=== PATIENT | male | born 1955 | race Caucasian/White ===

== ENCOUNTER 2016-11-23 14:44 | Outpatient (CLI) | payer OTHER | END 2016-11-23 14:45 | disposition EMS.NT | LOC: EMS 14:44 | PROVIDERS: ATTEND Surgery | DX: S61.402A Unspecified open wound of left hand, initial encounter (principal); S61.401A Unspecified open wound of right hand, initial encounter; V09.29XA Pedestrian injured in traffic accident involving other motor vehicles, initial encounter; Y93.01 Activity, walking, marching and hiking; Y92.414 Local residential or business street as the place of occurrence of the external cause ==

== ENCOUNTER 2016-11-23 15:07 | Emergency (ER) | payer OTHER ==
[2016-11-23] MEDS ORDERED: oxyCOD/ACETAMIN 5 MG/325 MG TABLET PO STA (15:32)
[2016-11-23] MEDS ORDERED: TETANUS/DIPHTHERIA/PERTUSSIS 0.5 ML SYRINGE IM ONE ×2 (15:32→15:36)
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
[2016-11-23] MEDS ORDERED: oxyCOD/ACETAMIN 5 MG/325 MG TABLET PO ONE (15:36)
[2016-11-23] MEDS ORDERED: LIDOCAINE JELLY 2% 5 ML TUBE TOP STA (16:27)
[2016-11-23] MEDS ORDERED: LIDOCAINE JELLY 2% 5 ML TUBE TOP ONE ×2 (16:30→16:35)
--- NOTE | 2016-11-23 16:58 | XRAY Preliminary Report ---
Exam: XR Foot 3 View LT IMPRESSION: No acute fracture or subluxation. [facility] SITE ID: [id number]
--- NOTE | 2016-11-23 17:01 | XRAY Report ---
EXAM: LEFT FOOT RADIOGRAPHY EXAM DATE: 11/23/2016 04:29 PM. CLINICAL HISTORY: Foot injury. Foot pain. COMPARISON: None. TECHNIQUE: 3 views. FINDINGS: Bones: Normal. No fractures or bone lesions. Joints: No subluxation or dislocation. Mild hallux valgus of first digit. Soft Tissues: Normal. No soft tissue swelling. IMPRESSION: No acute fracture or subluxation. [facility] Referring Provider Line: [phone] SITE ID: [id number]
[2016-11-23 17:59] VITALS: BP 175/93
== END 2016-11-23 18:13 | disposition home or self-care (01) ==
LOC: ED 15:07
DX: S30.810A Abrasion of lower back and pelvis, initial encounter (principal); S60.512A Abrasion of left hand, initial encounter; S60.511A Abrasion of right hand, initial encounter; S90.32XA Contusion of left foot, initial encounter; V09.00XA Pedestrian injured in nontraffic accident involving unspecified motor vehicles, initial encounter; Y93.01 Activity, walking, marching and hiking; Y92.488 Other paved roadways as the place of occurrence of the external cause; I10 Essential (primary) hypertension; E78.00 Pure hypercholesterolemia, unspecified
CPT/HCPCS: 73630; 90471; 90715; 99283; A9270; J3490

== ENCOUNTER 2017-04-10 11:28 | Outpatient (CLI) | payer OTHER | END 2017-04-10 11:29 | disposition home or self-care (01) | LOC: LAB 11:28 | PROVIDERS: ATTEND Family Medicine | DX: Z12.5 Encounter for screening for malignant neoplasm of prostate (principal) | CPT/HCPCS: 36415; 84153 ==

== ENCOUNTER 2018-01-30 23:35 | Outpatient (CLI) | payer OTHER | END 2018-01-30 23:36 | disposition critical access hospital (66) | LOC: EMS 23:35 | PROVIDERS: ATTEND Surgery | DX: R53.1 Weakness (principal) | CPT/HCPCS: A0425; A0429 ==

== ENCOUNTER 2018-01-30 23:40 | Emergency (ER) | payer OTHER ==
[2018-01-31] MEDS ORDERED: ALBUTEROL NEB 2.5 MG/3 ML INH STA (00:15)
[2018-01-31 00:30] LABS: BASOPHILS # (AUTO) 0.1 10^3/uL (0.0-0.1); BASOPHILS % (AUTO) 0.8 %; EOSINOPHILS # (AUTO) 0.1 10^3/uL (0.0-0.7); EOSINOPHILS % (AUTO) 0.5 %; LYMPHOCYTES % (AUTO) 18.5 %; MEAN CORPUSCULAR HEMOGLOBIN 31.5 pg (27.0-31.0); MEAN CORPUSCULAR HGB CONC 32.3 g/dL (32.0-36.0); MEAN CORPUSCULAR VOLUME 97.3 fL (80.0-94.0); MEAN PLATELET VOLUME 7.3 fL (7.4-11.4); MONOCYTES # (AUTO) 0.4 10^3/uL (0.0-1.0); MONOCYTES % (AUTO) 3.9 %; NEUTROPHILS # (AUTO) 8.3 10^3/uL (1.5-6.6); NEUTROPHILS % (AUTO) 76.3 %; PLT - PLATELET COUNT 360 10^3/uL (130-450); RED BLOOD COUNT 3.83 10^6/uL (4.70-6.10); RED CELL DISTRIBUTION WIDTH 14.6 % (12.0-15.0); WHITE BLOOD COUNT 10.8 x10^3/uL (4.8-10.8)
[2018-01-31 00:40] LABS: CALCIUM 8.8 mg/dL (8.5-10.3); CREATININE 1.4 mg/dL (0.6-1.2)
--- NOTE | 2018-01-31 01:21 | ED Physician Documentation ---
History of Present Illness - Stated complaint Stated Complaint: ETOH - Chief complaint Chief Complaint: General - History obtained from History obtained from: Patient, Family - History of Present Illness Timing: Today Pain level max: 0 Pain level now: 0 Improved by: nothing Worsened by: ambulation, even trying to stand - Additonal information Additional information: drinking alcohol tonight at, and after, a . he felt dizzy, unsteady gait , and bilateral lower extremity weakness Review of Systems Constitutional: reports: Reviewed and negative Eyes: reports: Reviewed and negative Cardiac: reports: Reviewed and negative Respiratory: reports: Reviewed and negative GI: reports: Reviewed and negative : reports: Reviewed and negative Skin: reports: Reviewed and negative Musculoskeletal: reports: Reviewed and negative Neurologic: reports: Generalized weakness. denies: Focal weakness, Numbness, Confused, Altered mental status, Headache PD PAST MEDICAL HISTORY - Past Medical History Cardiovascular: Hypertension, High cholesterol, Other Respiratory: Shortness of breath Endocrine/Autoimmune: None GI: None : None HEENT: None Psych: None Musculoskeletal: None Derm: Other - Past Surgical History Past Surgical History: Yes Cardiovascular: Other - Present Medications Home Medications: Ambulatory Orders Medication Instructions Recorded Confirmed Lisinopril 40 mg PO DAILY #30 tablet 11/23/16 Propranolol [Inderal] 10 mg PO BID 01/30/18 - Allergies Allergies/Adverse Reactions: Allergies Allergy/AdvReac Type Severity Reaction Status Date / Time No Known Drug Allergies Allergy Verified 01/30/18 23:50 - Social History Does the pt smoke?: Yes Smoking Status: Current every day smoker Does the pt drink ETOH?: No Does the pt have substance abuse?: No - Immunizations Immunizations are current?: No Immunizations: TDAP >10years/unknown PD ED PE NORMAL - Vitals Vital signs reviewed: Yes - General General: Alert and oriented X 3, No acute distress, Well developed/nourished - HEENT HEENT: PERRL, EOMI, Moist mucous membranes - Neck Neck: Supple, no meningeal sign, No bony TTP - Cardiac Cardiac: RRR, No murmur - Respiratory Respiratory: No respiratory distress, Clear bilaterally - Abdomen Abdomen: Normal bowel sounds, Soft, Non tender, Non distended - Derm Derm: Normal color, Warm and dry - Neuro Neuro: Alert and oriented X 3, speed runner 2-12 intact, No motor deficit, No sensory deficit, Normal speech PD ED PE EXPANDED - Extremities Extremities: Pedal edema bilateral Results - Vitals Vitals: Oxygen O2 Source Room air - Labs Labs: Laboratory Tests 01/31/18 01/31/18 00:25 00:25 WBC 10.8 RBC 3.83 L Hgb 12.0 L Hct 37.2 L MCV 97.3 H MCH 31.5 H MCHC 32.3 RDW 14.6 Plt Count 360 MPV 7.3 L Neut # (Auto) 8.3 H Lymph # (Auto) 2.0 [place] # (Auto) 0.4 Eos # (Auto) 0.1 Baso # (Auto) 0.1 Absolute Nucleated RBC 0.00 Nucleated RBC % 0.0 Sodium 133 L Potassium 3.3 L Chloride 96 L Carbon Dioxide 26 Anion Gap 11.0 BUN 15 Creatinine 1.4 H Estimated GFR (MDRD) 52 L Glucose 125 H Calcium 8.8 Ethyl Alcohol 243.8 PD MEDICAL DECISION MAKING - ED course Complexity details: reviewed results, re-evaluated patient, considered differential, d/w patient, d/w family ED course: was able to ambulate with minimal assistance late in ED stay, and he feels he is close enough to his baseline to be discharged home - Sepsis Event Vital Signs: Oxygen O2 Source Room air Departure - Departure Disposition: Home, Self Care Clinical Impression: Intoxication, Weakness Condition: Good Instructions: ED Alcohol Intoxication, ED Weakness [facility] Follow-Up: Nora Javed MD [Primary Care Provider] - Discharge Date/Time: 01/31/18 05:11
[2018-01-31] MEDS ORDERED: SODIUM CHLORIDE 0.9% 1,000 ML IV STA (01:23)
[2018-01-31 04:50] VITALS: BP 140/75
== END 2018-01-31 05:11 | disposition home or self-care (01) ==
LOC: EDUNIT# → ED 23:40
DX: F10.129 Alcohol abuse with intoxication, unspecified (principal); R53.1 Weakness; I10 Essential (primary) hypertension; F17.200 Nicotine dependence, unspecified, uncomplicated
CPT/HCPCS: 36415; 80048; 80320; 85025; 94640; 96360; 99283

== ENCOUNTER 2018-02-08 16:35 | Outpatient (CLI) | payer OTHER ==
--- NOTE | 2018-02-09 10:48 | MRI Report ---
Procedure Date: 02/08/2018 Accession Number: [id number] / [id number] Procedure: MRI - Lumbar Spine W/O CPT Code: FULL RESULT: EXAM: MRI LUMBAR SPINE WITHOUT CONTRAST EXAM DATE: 02/08/2018 04:44 PM. CLINICAL HISTORY: Leg weakness, bilateral, low back pain. COMPARISON: None. TECHNIQUE: Multiplanar, multisequence T1-weighted and fluid-sensitive sequences of the lumbar spine from T12 to S1 without contrast. Other: None. FINDINGS: Spinal Canal: The conus terminates at L1-L2. Tiny lipoma within the filum terminale at the posterior midline. Cauda equina otherwise unremarkable. Alignment: 5 mm anterior subluxation L4 on L5. Otherwise normal alignment. Bone Marrow: Lumbosacral transitional segment is referred to as L5. There are 4 non-rib bearing lumbar vertebral bodies. No gross fractures or bone lesions. No bone marrow replacement. Disk Levels/Facets: T12-L1: Minimal annular disk bulge. No stenosis. L1-L2: Small broad-based foraminal protrusions and mild facet arthropathy without significant stenosis. L2-L3: Broad-based left greater than right foraminal disk protrusions and mild degenerative facet arthropathy. Mild effacement of the thecal sac. Mild inferior foraminal narrowing without significant stenosis. L3-L4: Broad-based foraminal disk protrusions and mild degenerative facet arthropathy. Mild effacement of the thecal sac. Mild inferior foraminal narrowing without significant stenosis. L4-L5: Grade 1 degenerative spondylolisthesis. Severe left and moderate right facet arthropathy. Annular disk bulge. Mild left greater than right foraminal narrowing without significant stenosis. Mild effacement of the thecal sac. L5-S1: Small disk. No stenosis. Musculature: Normal. No edema or fatty atrophy. Other: The partially visualized retroperitoneum is unremarkable. IMPRESSION: 1. Lumbosacral transitional segment referred to as L5. 4 nonrib-bearing lumbar vertebral bodies. 2. Grade 1 L4-L5 degenerative spondylolisthesis. 3. Multilevel degenerative disk and facet arthropathy without a significant degree of canal or foraminal stenosis. Comment: The following findings are so common in adults without low back pain that while we report their presence, they must be interpreted with caution and in the context of the clinical situation. (Reference Juan Manuelk et al, Spine 2001) Prevalence of findings in patients without low back pain: Disk degeneration (any evidence): 92% Disk desiccation/T2 signal loss: 83% Disk height loss: 56% Disk bulge: 64% Disk protrusion: 32% Annular tear/high intensity zone: 38% [facility]
== END 2018-02-08 16:36 | disposition home or self-care (01) ==
LOC: DI 16:35
PROVIDERS: ATTEND Family Medicine
DX: M51.36 Other intervertebral disc degeneration, lumbar region (principal); M43.16 Spondylolisthesis, lumbar region; R29.898 Other symptoms and signs involving the musculoskeletal system
CPT/HCPCS: 72148

== ENCOUNTER 2019-06-26 21:19 | Outpatient (CLI) | payer MEDICARE | END 2019-06-26 21:20 | disposition critical access hospital (66) | LOC: EMS 21:19 | PROVIDERS: ATTEND Surgery | DX: R40.2411 Glasgow coma scale score 13-15, in the field [EMT or ambulance] (principal); R11.10 Vomiting, unspecified | CPT/HCPCS: A0425; A0429 ==

== ENCOUNTER 2019-06-26 21:25 | Emergency (ER) | payer MEDICAID, MEDICARE ==
--- NOTE | 2019-06-26 21:28 | ED Physician Documentation ---
PD HPI ALTERED MENTAL STATUS - Stated complaint Stated Complaint: ETOH - History obtained from History obtained from: EMS - History of Present Illness Timing - onset: Unknown Quality / character: Less responsive Contributing factors: Intoxicated Recently seen: Not recently seen - Additional information Additional information: patient BIBA for severe AMS; patient is unable to contribute to HPI/ROS due to severe AMS. Per medic report, patient was drinking alcohol with a friend earlier today. The friend went back to patient's house to check on him tonight and found patient on floor with several empty bottles of alcohol including bottle of vodka. Review of Systems Unable to obtain: Other (minimal responses to questions, thus cannot obtain reliable ROS) PD PAST MEDICAL HISTORY - Past Medical History Cardiovascular: Hypertension, High cholesterol, Other Respiratory: Shortness of breath Endocrine/Autoimmune: None GI: None : None HEENT: None Psych: None Musculoskeletal: None Derm: Other - Past Surgical History Past Surgical History: Yes General: Other Cardiovascular: Other - Present Medications Home Medications: Ambulatory Orders Medication Instructions Recorded Confirmed lisinopriL [Lisinopril] 40 mg PO DAILY #30 tablet 11/23/16 Propranolol [Inderal] 10 mg PO BID 01/30/18 - Allergies Allergies/Adverse Reactions: Allergies Allergy/AdvReac Type Severity Reaction Status Date / Time No Known Drug Allergies Allergy Verified 01/30/18 23:50 - Social History Does the pt smoke?: Yes Smoking Status: Current every day smoker Does the pt drink ETOH?: No Does the pt have substance abuse?: No - Immunizations Immunizations are current?: No Immunizations: TDAP >10years/unknown PD ED PE NORMAL - Vitals Vital signs reviewed: Yes - General General: Well developed/nourished - HEENT HEENT: Atraumatic, PERRL, EOMI, Other (dry mucous membranes) - Cardiac Cardiac: RRR, No murmur, No gallop, No rub - Respiratory Respiratory: No respiratory distress, Clear bilaterally - Abdomen Abdomen: Soft, Non distended - Derm Derm: Normal color, Warm and dry - Extremities Extremities: No edema - Neuro Eye Opening: Spontaneous Motor: Localizes to Pain Verbal: Confused GCS Score: 13 PD ED PE EXPANDED - General General: Other (obtunded. answers few questions (asked name, repeatedly, he eventually mumbles "[place]"; asked location, repeatedly, he eventually says "no" (to question of "do you know where you are right now?))) Results - Vitals Vitals: Oxygen O2 Source Room air - Labs Labs: Laboratory Tests 06/26/19 06/26/19 06/27/19 21:39 21:39 00:45 WBC 8.8 RBC 4.33 L Hgb 13.4 L Hct 44.4 MCV 102.5 H MCH 30.9 MCHC 30.2 L RDW 13.8 Plt Count 298 MPV 9.4 Neut # (Auto) 5.2 Lymph # (Auto) 2.9 [place] # (Auto) 0.5 Eos # (Auto) 0.1 Baso # (Auto) 0.1 Absolute Nucleated RBC 0.00 Nucleated RBC % 0.0 Sodium 135 Potassium 4.0 Chloride 98 L Carbon Dioxide 25 Anion Gap 12.0 BUN 15 Creatinine 1.1 Estimated GFR (MDRD) 68 L Glucose 104 H Calcium 8.8 Phosphorus 3.8 Magnesium 2.2 Total Bilirubin 0.3 AST 18 ALT 10 Alkaline Phosphatase 71 Troponin I High Sens 10.7 Total Protein 8.4 H Albumin 3.6 Globulin 4.8 H Albumin/Globulin Ratio 0.8 L Lipase 27 Urine Color Urine Clarity Urine pH Ur Specific [place] Urine Protein Urine Glucose (UA) Urine Ketones Urine Occult Blood Urine Nitrite Urine Bilirubin Urine Urobilinogen Ur Leukocyte Esterase Ur Microscopic Review Urine Culture Comments Urine Opiates Screen Ur Oxycodone Screen Urine Methadone Screen Ur Propoxyphene Screen Ur Barbiturates Screen Ur Tricyclics Screen Ur Phencyclidine Scrn Ur Amphetamine Screen U Methamphetamines Scrn U Benzodiazepines Scrn Urine Cocaine Screen U Cannabinoids Screen Ethyl Alcohol 308.5 06/27/19 00:55 WBC RBC Hgb Hct MCV MCH MCHC RDW Plt Count MPV Neut # (Auto) Lymph # (Auto) [place] # (Auto) Eos # (Auto) Baso # (Auto) Absolute Nucleated RBC Nucleated RBC % Sodium Potassium Chloride Carbon Dioxide Anion Gap BUN Creatinine Estimated GFR (MDRD) Glucose Calcium Phosphorus Magnesium Total Bilirubin AST ALT Alkaline Phosphatase Troponin I High Sens Total Protein Albumin Globulin Albumin/Globulin Ratio Lipase Urine Color YELLOW Urine Clarity CLEAR Urine pH 5.5 Ur Specific [place] <=1.005 Urine Protein NEGATIVE Urine Glucose (UA) NEGATIVE Urine Ketones NEGATIVE Urine Occult Blood TRACE-LYSE Urine Nitrite NEGATIVE Urine Bilirubin NEGATIVE Urine Urobilinogen 0.2 (NORMAL) Ur Leukocyte Esterase NEGATIVE Ur Microscopic Review NOT INDICATED Urine Culture Comments NOT INDICATED Urine Opiates Screen NEGATIVE Ur Oxycodone Screen NEGATIVE Urine Methadone Screen NEGATIVE Ur Propoxyphene Screen NEGATIVE Ur Barbiturates Screen NEGATIVE Ur Tricyclics Screen NEGATIVE Ur Phencyclidine Scrn NEGATIVE Ur Amphetamine Screen NEGATIVE U Methamphetamines Scrn NEGATIVE U Benzodiazepines Scrn NEGATIVE Urine Cocaine Screen NEGATIVE U Cannabinoids Screen NEGATIVE Ethyl Alcohol - Rads (name of study) CT head Radiology: Prelim report reviewed, See rad report CT neck Radiology: Prelim report reviewed, See rad report PD MEDICAL DECISION MAKING - ED course Complexity details: reviewed old records, reviewed results, re-evaluated patient, considered differential, d/w patient, d/w family ED course: during ED observation, patient became increasingly awake and alert and in NAD. he admits to drinking heavily (alcohol) and admits he drinks too much and need to cut down. I encouraged him to do so, but also emphasized the much greater importance of stopping alcohol intake entirely. Departure - Departure Disposition: 01 Home, Self Care Clinical Impression: Intoxication Condition: Good Instructions: ED Alcohol Intoxication, ED Alcohol Abuse Follow-Up: Nora Javed MD [Primary Care Provider] - Discharge Date/Time: 06/27/19 02:34
[2019-06-26 21:44] LABS: BASOPHILS # (AUTO) 0.1 10^3/uL (0.0-0.1); BASOPHILS % (AUTO) 0.7 %; EOSINOPHILS # (AUTO) 0.1 10^3/uL (0.0-0.7); EOSINOPHILS % (AUTO) 1.5 %; HGB - HEMOGLOBIN 13.4 g/dL (14.0-18.0); LYMPHOCYTES # (AUTO) 2.9 10^3/uL (1.5-3.5); LYMPHOCYTES % (AUTO) 32.4 %; MEAN CORPUSCULAR HEMOGLOBIN 30.9 pg (27.0-31.0); MEAN CORPUSCULAR HGB CONC 30.2 g/dL (32.0-36.0); MEAN CORPUSCULAR VOLUME 102.5 fL (80.0-94.0); MEAN PLATELET VOLUME 9.4 fL (7.4-11.4); MONOCYTES # (AUTO) 0.5 10^3/uL (0.0-1.0); MONOCYTES % (AUTO) 5.3 %; NEUTROPHILS # (AUTO) 5.2 10^3/uL (1.5-6.6); NEUTROPHILS % (AUTO) 59.5 %; PLT - PLATELET COUNT 298 10^3/uL (130-450); RED BLOOD COUNT 4.33 10^6/uL (4.70-6.10); RED CELL DISTRIBUTION WIDTH 13.8 % (12.0-15.0); WHITE BLOOD COUNT 8.8 x10^3/uL (4.8-10.8)
[2019-06-26] MEDS ORDERED: FOLIC ACID INJ 1 MG, THIAMINE INJ 100 MG, MAGNESIUM SULFATE 2 GM, MULTIVITAMIN 10 ML in... IV STA ×5 (21:46)
[2019-06-26 21:57] LABS: ALBUMIN 3.6 g/dL (3.2-5.5); ALBUMIN/GLOBULIN RATIO 0.8 (1.0-2.2); BILIRUBIN,TOTAL 0.3 mg/dL (0.2-1.0); CALCIUM 8.8 mg/dL (8.5-10.3); CREATININE 1.1 mg/dL (0.6-1.2); MAGNESIUM 2.2 mg/dL (1.7-2.8); PHOSPHORUS 3.8 mg/dL (2.5-4.6); TOTAL PROTEIN 8.4 g/dL (6.7-8.2)
[2019-06-26] MEDS ORDERED: THIAMINE 100 MG/1 ML 2 ML MDV ONE (21:57)
--- NOTE | 2019-06-26 22:34 | CT Report ---
Reason: AMS Procedure Date: 06/26/2019 Accession Number: [id number] / [id number] Procedure: CT - HEAD WO CPT Code: Final Report FULL RESULT: EXAM: CT HEAD EXAM DATE: 06/26/2019 10:26 PM. CLINICAL HISTORY: Altered mental status. Found down on floor. COMPARISON: None. TECHNIQUE: Multiaxial CT images were obtained from the foramen magnum to the vertex. Reformats: Sagittal and coronal. IV contrast: None. In accordance with CT protocol optimization, one or more of the following dose reduction techniques were utilized for this exam: automated exposure control, adjustment of mA and/or KV based on patient size, or use of iterative reconstructive technique. FINDINGS: Parenchyma: No intraparenchymal hemorrhage. No evidence of mass, midline shift, or CT findings of infarction. Quiros-white differentiation is distinct. There is mild chronic microvascular change in the deep white matter. Extraaxial Spaces: Normal for age. No subdural or epidural collections identified. Ventricles: Normal in size and position. Sinuses and Orbits: Imaged paranasal sinuses, orbits, and mastoids show no significant abnormality. Bones: No evidence of fracture or calvarial defect. Other: None. IMPRESSION: 1. No acute intracranial abnormality. 2. No skull fracture. 3. Mild chronic microvascular ischemic change. Otherwise unremarkable noncontrast CT brain. [facility]
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
--- NOTE | 2019-06-27 00:50 | XRAY Report ---
Reason: chest pain Procedure Date: 06/27/2019 Accession Number: [id number] / [id number] Procedure: XR - Chest 1 View X-Ray CPT Code: 18221 Final Report FULL RESULT: EXAM: CHEST RADIOGRAPHY EXAM DATE: 06/27/2019 12:39 AM. CLINICAL HISTORY: Chest pain. COMPARISON: XR CHEST PA AND LAT 09/09/2010 5:48 AM. TECHNIQUE: 1 view. FINDINGS: Lungs/Pleura: No alveolar consolidation or pleural effusion seen. No pneumothorax. Mediastinum: Within exam limitations, heart size is upper normal. Other: None. IMPRESSION: 1. Borderline heart size. No acute abnormality seen. [facility]
[2019-06-27 00:59] LABS: MUDS CUTOFF CONCENTRATIONS CUTOFF CONC BELOW:
[2019-06-27 01:07] LABS: BILIRUBIN,URINE NEGATIVE (NEGATIVE); GLUCOSE, URINE (UA) NEGATIVE (NEGATIVE); KETONES,URINE (UA) NEGATIVE (NEGATIVE); LEUKOCYTE ESTERASE, URINE NEGATIVE (NEGATIVE); NITRITE,URINE NEGATIVE (NEGATIVE); OCCULT BLOOD,URINE TRACE-LYSE (NEGATIVE); PH,URINE 5.5 PH (5.0-7.5); PROTEIN,URINE NEGATIVE (NEGATIVE); UROBILINOGEN,URINE 0.2 (NORMAL) E.U./dL (NORMAL)
[2019-06-27 01:08] LABS: CLARITY,URINE CLEAR (CLEAR)
[2019-06-27 01:15] LABS: AMPHETAMINE SCREEN,URINE NEGATIVE (NEGATIVE); BENZODIAZEPINES SCREEN, URINE NEGATIVE (NEGATIVE); COCAINE SCREEN URINE NEGATIVE (NEGATIVE); METHADONE SCREEN, URINE NEGATIVE (NEGATIVE); METHAMPHETAMINES SCREEN, URINE NEGATIVE (NEGATIVE); OPIATE SCREEN, URINE NEGATIVE (NEGATIVE); OXYCODONE SCREEN, URINE NEGATIVE (NEGATIVE); PROPOXYPHENE SCREEN, URINE NEGATIVE (NEGATIVE); TRICYCLIC ANTIDEPRESSANT,URINE NEGATIVE (NEGATIVE)
[2019-06-27 02:22] VITALS: BP 114/71
== END 2019-06-27 02:34 | disposition home or self-care (01) ==
LOC: EDUNIT# → ED 21:25
DX: F10.929 Alcohol use, unspecified with intoxication, unspecified (principal); R41.82 Altered mental status, unspecified; M47.812 Spondylosis without myelopathy or radiculopathy, cervical region; I10 Essential (primary) hypertension; F17.200 Nicotine dependence, unspecified, uncomplicated
CPT/HCPCS: 36415; 70450; 71045; 72125; 80053; 81003; 83690; 83735; 84100; 84484; 85025; 93005; 96365; 96366; 99281; 99284; J3411; 80306; 80320; 81001; 87086

== ENCOUNTER 2020-10-29 14:50 | Inpatient (IN) | payer MEDICARE ==
--- OUTSIDE RECORDS SUMMARY | 2020-10-29 15:31 | EXTERNAL MEDICAL SUMMARY RPT | Continuity of Care Document ---
:1955 Demographics Phone Unavailable Preferred Language Unknown Marital Status Unknown Presybeterian Affiliation Unknown Race Unknown Ethnic Group Unknown Author Organization [facility] Address [address] [phone] Phone Social History date description facility [id number]
--- NOTE | 2020-10-29 17:43 | XRAY Report ---
PROCEDURE: Ribs w/PA Chest LT INDICATIONS: fall with chest pain TECHNIQUE: 2 views of the left ribs were acquired, along with a single view chest. COMPARISON: Chest radiographs 06/27/2019 FINDINGS: Surgical changes and devices: None. Bones and chest wall: Multiple minimally displaced left lateral rib fractures are seen involving the 5th through 10th ribs, with mild displacement of the sixth rib fracture. No suspicious bony lesions. Overlying soft tissues appear unremarkable. Lungs and pleura: No pleural effusions or pneumothorax. Lungs appear clear. Mediastinum: Mediastinal contours appear normal. Heart size is normal. IMPRESSION: Multiple minimally to mildly displaced left lateral rib fractures involving the 5th through 10th ribs . No pneumothorax. Reviewed by: Preet Le MD on 10/29/2020 5:42 PM PDT Approved by: Preet Le MD on 10/29/2020 5:42 PM PDT Station ID: [id number]
[2020-10-29] MEDS ORDERED: HYDROmorphone 1 MG/ML CARPUJECT IVP STA (17:55)
[2020-10-29 17:56] LABS: BASOPHILS # (AUTO) 0.1 10^3/uL (0.0-0.1); BASOPHILS % (AUTO) 0.4 %; EOSINOPHILS % (AUTO) 0.3 %; HGB - HEMOGLOBIN 13.8 g/dL (14.0-18.0); LYMPHOCYTES # (AUTO) 1.5 10^3/uL (1.5-3.5); LYMPHOCYTES % (AUTO) 11.7 %; MEAN CORPUSCULAR HEMOGLOBIN 30.2 pg (27.0-31.0); MEAN CORPUSCULAR HGB CONC 30.7 g/dL (32.0-36.0); MEAN CORPUSCULAR VOLUME 98.5 fL (80.0-94.0); MEAN PLATELET VOLUME 9.3 fL (7.4-11.4); MONOCYTES # (AUTO) 0.9 10^3/uL (0.0-1.0); MONOCYTES % (AUTO) 6.6 %; NEUTROPHILS # (AUTO) 10.4 10^3/uL (1.5-6.6); NEUTROPHILS % (AUTO) 80.6 %; PLT - PLATELET COUNT 353 10^3/uL (130-450); RED BLOOD COUNT 4.57 10^6/uL (4.70-6.10); WHITE BLOOD COUNT 12.9 x10^3/uL (4.8-10.8)
[2020-10-29] MEDS ORDERED: IPRATROPIUM 0.2 MG/ML NEB INH STA (18:03)
[2020-10-29] MEDS ORDERED: ALBUTEROL NEB 2.5 MG/3 ML INH STA (18:03)
--- NOTE | 2020-10-29 18:06 | ED Physician Documentation ---
History of Present Illness - Stated complaint Stated Complaint: LT SIDE PX - Chief complaint Chief Complaint: Resp - Additonal information Additional information: 64-year-old male presents the emergency department for evaluation of shortness of air left-sided chest pain. He reports that 4 nights ago he was with his family around a campfire and he tripped falling onto his left side since then he has had increasing difficulty breathing and shortness of air. He does have a history of COPD but is not oxygen dependent. He believes he takes only albuterol as needed. On exam he appears labored sitting forward to breathe and mildly tachypneic with very poor air entry. However he is saturating about 93% on room air. Review of Systems Constitutional: denies: Fever, Chills Eyes: reports: Reviewed and negative Ears: reports: Reviewed and negative Nose: reports: Reviewed and negative Throat: reports: Reviewed and negative Cardiac: reports: Chest pain / pressure, Other (chest wall pain) Respiratory: denies: Dyspnea, Cough GI: denies: Abdominal Pain, Abdominal Swelling, Nausea, Vomiting : reports: Reviewed and negative Skin: denies: Rash, Lesions PD PAST MEDICAL HISTORY - Past Medical History Cardiovascular: Hypertension, High cholesterol, Other Respiratory: Shortness of breath Neuro: None Endocrine/Autoimmune: None GI: None : None HEENT: None Psych: None Musculoskeletal: None Derm: Other - Past Surgical History Past Surgical History: Yes General: Other Cardiovascular: Other - Present Medications Home Medications: Ambulatory Orders Medication Instructions Recorded Confirmed lisinopriL [Lisinopril] 40 mg PO DAILY #30 tablet 11/23/16 Propranolol [Inderal] 10 mg PO BID 01/30/18 - Allergies Allergies/Adverse Reactions: Allergies Allergy/AdvReac Type Severity Reaction Status Date / Time No Known Drug Allergies Allergy Verified 10/29/20 14:58 - Social History Does the pt smoke?: Yes Smoking Status: Current every day smoker Does the pt drink ETOH?: No Does the pt have substance abuse?: No - Immunizations Immunizations are current?: No Immunizations: TDAP >10years/unknown - POLST Patient has POLST: No PD ED PE EXPANDED - General General: Alert, In Pain - Cardiac Cardiac: Regular Rhythm, Radial strong equal, Pedal strong equal, Cap refill < 2 sec, Chest wall TTP (Significant left lateral chest wall tenderness without crepitus erythema or subcutaneous emphysema.) - Respiratory Respiratory: Labored, Other (Mild tachypnea. Very poor air entry in all lung mancini without wheeze or crackle.) - Abdomen Abdomen: Normal Bowel sounds. No: Tender to palpation - Derm Derm: Normal color, Warm and dry - Extremities Extremities: Normal. No: Deformity, Tenderness - Neuro Neuro: Alert and Oriented X 3, CNII-XII intact Results - Vitals Vitals: Vital Signs - 24 hr 10/29/20 10/29/20 10/29/20 14:58 17:41 18:17 Temperature 36.5 C 36.8 C Heart Rate 96 95 88 Respiratory 16 16 17 Rate Blood Pressure 180/100 H 154/88 H O2 Saturation 96 94 10/29/20 19:21 Temperature Heart Rate 89 Respiratory 18 Rate Blood Pressure 170/84 H O2 Saturation 100 Oxygen O2 Source Room air - Labs Labs: Laboratory Tests 10/29/20 10/29/20 17:50 17:50 WBC 12.9 H RBC 4.57 L Hgb 13.8 L Hct 45.0 MCV 98.5 H MCH 30.2 MCHC 30.7 L RDW 14.0 Plt Count 353 MPV 9.3 Neut # (Auto) 10.4 H Lymph # (Auto) 1.5 [place] # (Auto) 0.9 Eos # (Auto) 0.0 Baso # (Auto) 0.1 Absolute Nucleated RBC 0.00 Nucleated RBC % 0.0 Sodium 135 Potassium 4.6 Chloride 95 L Carbon Dioxide 28 Anion Gap 12.0 BUN 37 H Creatinine 1.3 H Estimated GFR (MDRD) 56 L Glucose 121 H Calcium 9.7 Total Bilirubin 0.8 AST 16 ALT 14 Alkaline Phosphatase 87 Total Protein 9.4 H Albumin 4.1 Globulin 5.3 H Albumin/Globulin Ratio 0.8 L Lipase 21 L - Rads (name of study) CXR Radiology: Final report received (Multiple minimally to mildly displaced left lateral rib fractures involving the fifth through the 10th ribs. No pneumothorax.) CT Chest wo Radiology: Final report received (Multiple left-sided rib fractures extending from the fourth to the 10th ribs including displaced lateral fifth and sixth with minimally displaced segmental fractures and seventh and eighth ribs. No pneumothorax.) PD MEDICAL DECISION MAKING - ED course Complexity details: reviewed results, re-evaluated patient, d/w patient, d/w content management consultant ED course: 64-year-old male who carries a history of COPD presents the emergency department for evaluation of shortness of air as well as left-sided rib pain after a fall Monday evening around a campfire. He did not strike his head or lose consciousness but has had a very tender chest since then in addition to that he has had progressive shortness of air. On presentation he was somewhat tachypneic and tripoding. He had very poor airflow though he was saturating 92% on room air. He was given albuterol and Atrovent nebulizers which markedly improved his airflow and his dyspnea. An initial x-ray suggested multiple left- sided rib fractures therefore we did proceed to do a CT of the chest without contrast. That also indicates multiple left-sided rib fractures. There is no pneumothorax. No findings of pneumonia. Screening labs do show a mild leukocytosis. Given this gentleman's age and the extensive amount of rib fractures Dr. Trevino was consulted for further evaluation and treatment. She agrees to admit him to the hospital under an observation status. Patient is awake well-appearing at this time and agrees with the plan of care. Departure - Departure Disposition: ED Place in Observation Clinical Impression: Multiple fractures of ribs Qualifiers: Encounter type: initial encounter Fracture type: closed Laterality: left Qualified Code(s): S22.42XA - Multiple fractures of ribs, left side, initial encounter for closed fracture
[2020-10-29 18:12] LABS: ALBUMIN 4.1 g/dL (3.2-5.5); ALBUMIN/GLOBULIN RATIO 0.8 (1.0-2.2); BILIRUBIN,TOTAL 0.8 mg/dL (0.2-1.0); CALCIUM 9.7 mg/dL (8.5-10.3); CREATININE 1.3 mg/dL (0.6-1.2); POTASSIUM 4.6 mmol/L (3.5-5.0); TOTAL PROTEIN 9.4 g/dL (6.7-8.2)
--- NOTE | 2020-10-29 18:40 | CT Report ---
PROCEDURE: CHEST WO INDICATIONS: multiple rib fx TECHNIQUE: Noncontrast 5 mm thick sections acquired from the pulmonary apices to the posterior costophrenic angl es. 7 mm thick coronal and sagittal MIP reformats were then acquired. For radiation dose reduction, the following was used: automated exposure control, adjustment of mA and/or kV according to patient size. COMPARISON: Left rib radiographs performed earlier the same day. FINDINGS: Image quality: Excellent. Lungs and pleura: No acute air space opacities. Mild atelectasis or scarring is seen at the lateral aspect of the left lung base and right middle lobe. No pleural effusions or pneumothorax. Central a nd peripheral airways are patent and normal in caliber. Mediastinum: Heart size is normal. No pericardial effusion. Mild aortic and coronary artery athero sclerotic calcifications are present. No mediastinal adenopathy by size criteria. Thoracic aorta and central pulmonary arteries are normal in size. Esophagus is normal in caliber. No hiatal hernia. Bones and chest wall: Multiple left-sided rib fractures are seen. There is a nondisplaced fracture a t the lateral left fourth rib. A fracture of the lateral left fifth rib is seen with medial displacem ent of the distal rib by 1 shaft width. There is a mildly displaced lateral sixth rib fracture with m edial displacement by less than 1 shaft width. Minimally displaced segmental fractures seen in the le ft seventh and 8 ribs with fractures posteriorly and laterally. Minimally displaced posterior ninth r ib fracture is seen. There is a minimally displaced lateral 10th rib fracture. No suspicious bony lesions. No vertebral body compression fractures. No axillary or supraclavicular adenopathy by size criteria. The thyroid is normal in size. Abdomen: Visualized upper abdominal solid organs and bowel loops appear normal in the absence of con trast. IMPRESSION: Multiple left-sided rib fractures as described above extending from the 4th to the 10th ribs, includi ng displaced lateral 5th and 6th rib fractures and minimally displaced segmental fractures in the 7th and 8th ribs. No pneumothorax. Reviewed by: Preet Le MD on 10/29/2020 6:39 PM PDT Approved by: Preet Le MD on 10/29/2020 6:39 PM PDT Station ID: [id number]
[2020-10-29] MEDS ORDERED: SODIUM CHLORIDE 0.9% 1,000 ML IV STA (19:08)
[2020-10-29 19:44] LABS: B. PARAPERTUSSIS- RESP PCR PAN NOT DETECTED; B. PERTUSSIS- RESP PCR PANEL NOT DETECTED; C. PNEUMONIAE- RESP PCR PANEL NOT DETECTED; CORONAVIRUS 229E-RESP PCR NOT DETECTED; CORONAVIRUS HKU1-RESP PCR NOT DETECTED; CORONAVIRUS NL63-RESP PCR NOT DETECTED; CORONAVIRUS OC43-RESP PCR NOT DETECTED; HUMAN METAPNEUMOVIRUS NOT DETECTED; INFLUENZA A- RESP PCR PANEL NOT DETECTED; INFLUENZA B - RESP PCR PANEL NOT DETECTED; M. PNEUMONIAE- RESP PCR PANEL NOT DETECTED; PARAINFLUENZA VIRUS 1 NOT DETECTED; PARAINFLUENZA VIRUS 2 NOT DETECTED; PARAINFLUENZA VIRUS 3 NOT DETECTED; PARAINFLUENZA VIRUS 4 NOT DETECTED; RHINOVIRUS/ENTEROVIRUS NOT DETECTED; RSV- RESP PCR PANEL NOT DETECTED; SARS-CoV-2 -RESP PCR PANEL NOT DETECTED
[2020-10-29] MEDS ORDERED: LORazepam 2 MG/ML VIAL IVP PRN (19:57)
--- OUTSIDE RECORDS SUMMARY | 2020-10-29 20:23 | EXTERNAL MEDICAL SUMMARY RPT | Continuity of Care Document ---
:1955 Demographics Phone Unavailable Preferred Language Unknown Marital Status Unknown Uatsdin Affiliation Unknown Race Unknown Ethnic Group Unknown Author Organization [place] Address [address] [id number] Phone Social History date description facility [id number]
[2020-10-29] MEDS: SODIUM CHLORIDE 0.9% 1,000 ML IV SCH (20:43)
[2020-10-29] MEDS: KETOROLAC 15 MG/ML VIAL IVP SCH (20:43)
[2020-10-29] MEDS: PROPRANOLOL 10 MG TABLET PO SCH (22:20)
[2020-10-29] MEDS: ACETAMINOPHEN 325 MG TABLET PO SCH (22:20)
[2020-10-30] MEDS: ACETAMINOPHEN 325 MG TABLET PO SCH ×6 (00:46→21:29)
[2020-10-30] MEDS: SODIUM CHLORIDE FLUSH 0.9% 10 ML SYRINGE IVP SCH ×3 (02:05→16:26)
[2020-10-30] MEDS: KETOROLAC 15 MG/ML VIAL IVP SCH ×4 (02:05→21:31)
[2020-10-30 05:50] LABS: BASOPHILS % (AUTO) 0.4 %; EOSINOPHILS # (AUTO) 0.1 10^3/uL (0.0-0.7); EOSINOPHILS % (AUTO) 1.7 %; HGB - HEMOGLOBIN 11.7 g/dL (14.0-18.0); LYMPHOCYTES # (AUTO) 1.8 10^3/uL (1.5-3.5); LYMPHOCYTES % (AUTO) 24.6 %; MEAN CORPUSCULAR HEMOGLOBIN 30.9 pg (27.0-31.0); MEAN CORPUSCULAR HGB CONC 30.8 g/dL (32.0-36.0); MEAN CORPUSCULAR VOLUME 100.3 fL (80.0-94.0); MEAN PLATELET VOLUME 9.7 fL (7.4-11.4); MONOCYTES # (AUTO) 0.7 10^3/uL (0.0-1.0); MONOCYTES % (AUTO) 9.4 %; NEUTROPHILS # (AUTO) 4.7 10^3/uL (1.5-6.6); NEUTROPHILS % (AUTO) 63.6 %; PLT - PLATELET COUNT 260 10^3/uL (130-450); RED BLOOD COUNT 3.79 10^6/uL (4.70-6.10); RED CELL DISTRIBUTION WIDTH 13.9 % (12.0-15.0); WHITE BLOOD COUNT 7.5 x10^3/uL (4.8-10.8)
[2020-10-30] MEDS: PANTOPRAZOLE 40 MG TABLET PO SCH (06:46)
[2020-10-30 07:04] LABS: ALBUMIN 3.4 g/dL (3.2-5.5); ALBUMIN/GLOBULIN RATIO 0.8 (1.0-2.2); BILIRUBIN,TOTAL 0.9 mg/dL (0.2-1.0); CALCIUM 8.8 mg/dL (8.5-10.3); CREATININE 1.3 mg/dL (0.6-1.2); MAGNESIUM 2.3 mg/dL (1.7-2.8); POTASSIUM 4.4 mmol/L (3.5-5.0); TOTAL PROTEIN 7.8 g/dL (6.7-8.2)
[2020-10-30] MEDS: lisinopriL 20 MG TABLET PO SCH (08:35)
[2020-10-30] MEDS: PROPRANOLOL 10 MG TABLET PO SCH ×2 (08:35→21:29)
[2020-10-30] MEDS: ENOXAPARIN 40 MG/0.4 ML SYRINGE SUBQ SCH (08:38)
[2020-10-30] MEDS ORDERED: SODIUM CHLORIDE 0.9% 500 ML IV ONE (09:26)
[2020-10-30] MEDS: SODIUM CHLORIDE 0.9% 1,000 ML IV SCH ×2 (09:43→23:07)
--- NOTE | 2020-10-30 11:36 | SURGERY HX AND PHYSICAL(T) ---
Surgical History & Physical - Chief Complaint/HPI Chief Complaint: Difficulty breathing and chest pain History of Present Illness: 64-year-old male presents the emergency department for evaluation of shortness of air left-sided chest pain. He reports that 4 nights ago he was with his family around a campfire and he tripped falling onto his left side since then he has had increasing difficulty breathing and shortness of air. He does have a history of COPD but is not oxygen dependent. He believes he takes only albuterol as needed. He had a CT scan in the emergency room that revealed at least 6 left-sided rib fractures with displacement of several. He was treated with albuterol and Atrovent which improved his respiratory status. He was admitted to the floor for observation and supportive care. This morning his white count is improved. He says that his pain is about the same as it was. He continues to appear uncomfortable and leans forward sleeping with his oxygen in place. - PMH/PSH/Social Hx Does the pt have a hx of MRSA?: No Neurological History: None Eyes, Ears, Nose, Throat: None Cardiovascular: Hypertension, High cholesterol, Other Respiratory: Shortness of breath Skin: Other Endocrine/Autoimmune: None Gastrointestinal: None Urinary: None Musculoskeletal: None Psychiatric: None General: Other Cardiothoracic: Other Smoking Status: Current every day smoker Does the pt drink ETOH?: No Frequency: Daily Does the pt have substance abuse?: No - Home Meds and Allergies Home Medications: Propranolol [Inderal] 10 mg PO BID 01/30/18 Allergies/Adverse Reactions: Allergies Allergy/AdvReac Type Severity Reaction Status Date / Time No Known Drug Allergies Allergy Verified 10/29/20 14:58 - Review of Systems Constitutional: Fatigue Respiratory: Shortness of breath, Cough, Other (Left chest pain) Gastrointestinal: No: Nausea, Vomiting - Vital Signs Heart Rate: 89 Blood Pressure: 170/84 Temperature: 36.4 C Respiratory Rate: 20 O2 Saturation: 96 Weight (kg): 92.5 kg Height: 1.78 m - Physical Exam General Appearance: positive: Mild distress, Lethargic Eyes Bilatera: positive: Normal inspection, No scleral icterus ENT: negative: Oral lesions Neck: positive: Nml inspection Respiratory: positive: Wheezes, Other (Exquisite tenderness to palpation of the left chest without crepitance.) Cardiovascular: positive: Regular rate & rhythm Peripheral Pulses: positive: 0 Abdomen: positive: Non-tender Skin: positive: Color nml Extremities: positive: Non-tender Neurologic/Psychiatric: positive: Oriented x3 - Patient Review Patient Review: Problems were reviewed with the patient during this visit. Medications were reviewed with the patient during this visit. Allergies were reviewed this patient during this visit. Pertinent Tests Reviewed: All pertitent test for this patient were reviewed. - Assessment & Plan Assessment and Plan: 64-year-old gentleman who fell 4 days ago and sustained multiple left-sided rib fractures. Now with COPD exacerbation and uncontrolled pain. 1. Pain control- narcotic sparing analgesia. 2. Consult hospitalist service regarding management of COPD 3. Repeat the chest x-ray in the a.m.
[2020-10-30] MEDS: HYDROmorphone 0.5 MG/0.5 ML SYRINGE IVP PRN ×2 (13:07→17:12)
[2020-10-30 13:19] LABS: MUDS CUTOFF CONCENTRATIONS CUTOFF CONC BELOW:
[2020-10-30 13:32] LABS: AMPHETAMINE SCREEN,URINE NEGATIVE (NEGATIVE); BARBITURATE SCREEN,UR NEGATIVE (NEGATIVE); BENZODIAZEPINES SCREEN, URINE NEGATIVE (NEGATIVE); COCAINE SCREEN URINE NEGATIVE (NEGATIVE); METHADONE SCREEN, URINE NEGATIVE (NEGATIVE); METHAMPHETAMINES SCREEN, URINE NEGATIVE (NEGATIVE); OPIATE SCREEN, URINE NEGATIVE (NEGATIVE); OXYCODONE SCREEN, URINE NEGATIVE (NEGATIVE); PROPOXYPHENE SCREEN, URINE NEGATIVE (NEGATIVE); THC CANNABINOID SCREEN, URINE NEGATIVE (NEGATIVE); TRICYCLIC ANTIDEPRESSANT,URINE NEGATIVE (NEGATIVE)
--- NOTE | 2020-10-30 15:10 | CONSULTATION NOTE ---
Referring Provider Name of Referring Provider:: felicia Chappell MD Consult Date: 10/30/20 Chief Complaint - Chief Complaint Chief Complaint: lethargy History of Present Illness - Admitted From Admitted From:: Home - History Obtained From Records Reviewed: [facility] History obtained from: Dr. Chappell, His sister Jami and patient Exam Limitations: cognitive deficits - History of Present Illness HPI Comment/Other: This is a very placid, pleasant 64-year-old white male who smoked up to 2 packs/day and is now down to half a pack per day that I am asked to see by Dr. Trevino for lethargy. 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 The hole slowed him down quite a bit and they think that he did not have enough blood and oxygen to his brain and that left him with cognitive deficits for the rest of his life. He is slow to think, slow to respond and s tarts getting agitated if you push him too hard. He is always drank too much. But he cut back for a few years when he went down to [place] to take care of his grandmother. Ever since he has been back on [facility], he went back to drinking. He lives in his sisters [address] [facility] [place]. If she had not given him that he would be homeless. She also subsidizing by giving him money every week to make sure he has enough money for groceries. On the weekends he likes to go to his friend's house. He was around a campfire last Monday (today is Monday) and he was intoxicated, tripped, fell. He was in quite a bit of pain when he came home. His sister goes by almost every day day to check on him. He did not share anything with her about pain or the fall. he began complaining of rib cage pain and he told her the story about falling so she brought him to the emergency room October 29. He has multiple left-sided rib fractures extending from the fourth to the 10th rib including a displaced lateral fifth and sixth rib and minimally displaced segmental fracture in the seventh and eighth rib. No pneumothorax. As such she has been admitted to general surgery as a trauma. General surgery saw him today and felt that he was excessively sleepy and slightly obtunded. With his history of COPD she is worried about hypercapnia and asked me to see him. She saw him this morning. I am seeing him a couple of hours later and he is upright in a chair, animatedly discussing a TV program with housekeeping. He is awake, alert. His sister tells me that he "sleeps very hard" and it is hard to get him awake and interactive in the morning. So she wonders if that is what general surgery saw. At this time he is at baseline other than the rib cage pain. He denies cough, chest congestion. Tells me that his pain is relatively well controlled with the medicines are giving him. He has no respiratory distress and denies wheezing, phlegm, leg edema. History - Past Medical History Cardiovascular: reports: Hypertension (Any compliant depending on the cost of meds. In the past has been on lisinopril, Norvasc, propranolol), High cholesterol, Other (PFO with repair as child) Respiratory: reports: COPD (Intermittently compliant depending on his access to medications, he has been on albuterol HFA, Combivent HFA in the past), Shortness of breath Neuro: reports: Other (life long cognitive deficit and developmental delay, leg weakness w neg MRI for stenosis) Endocrine/Autoimmune: reports: Other (Hidradenitis supra tip of axilla, groin, buttocks.) GI: reports: Other (umbilical hernia) : reports: Other (Pilonidal cyst removed in the ) HEENT: reports: None Psych: reports: None Musculoskeletal: reports: Other (plantar fasciitis, Left clavicle fracture 12 years old.) Derm: reports: Other MRSA Hx?: No Other Past Medical History: chronic alcohol abuse with beer, vodka and Kalpesh Ortiz. - Past Surgical History General: reports: Colonoscopy (08/19/14 and without abnormal findings), Other (umbilical/ventral hernia repair w Mesh 08/22/14) Cardiovascular: reports: Other - Family & Social History Family History Comment/Other: Father: age 56, drowned. Mother: COPD, age 72. 5 brothers: Hodgkin's disease, prostate cancer in 2 of them, the rest healthy. 2 sisters, one has HTN. No children Living arrangement: At home Living Situation: Alone Social History Notes: He lives in 1/5 wheel that his sister is given him. She also subsidized him financially. He is never been never had children. 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 Most recent job was at the [employer] here in [place]. He has smoked since being a teenager. Was up to 2 packs/day. Has recently cut back to half pack per day for the last year or so. Sister acknowledges his alcohol abuse but cannot quantify how much he drinks. He can either. She knows that it has to be beer because he cannot afford much more than that. He and she deny recreational substance abuse. - Substance History Abuse: Recurrent use of substance despite neg consequences: Alcohol Abuse Issues: Intoxication Tobacco Details: Cigarettes - POLST Patient has POLST: No POLST Status: Full Code (She is his power of silk printer and they have never discussed the CODE STATUS. As such by default he is a full code) Meds/Allgy - Home Medications Home Medications: Ambulatory Orders Medication Instructions Recorded Confirmed lisinopriL [Lisinopril] 40 mg PO DAILY #30 tablet 11/23/16 Propranolol [Inderal] 10 mg PO BID 01/30/18 - Allergies Allergies/Adverse Reactions: Allergies Allergy/AdvReac Type Severity Reaction Status Date / Time No Known Drug Allergies Allergy Verified 10/29/20 14:58 Review of Systems - Constitutional Constitutional: denies: Fatigue, Fever, Chills, Malaise, Weakness, Diaphoresis, Night sweats - Eyes Eyes: reports: Vision loss (with age). denies: Pain, Irritation, Amaurosis, Blurred vision - Ears, Nose & Throat Ears, Nose & Throat: reports: Hearing loss (with age), Nasal congestion (sometimes). denies: Ear pain, Tinnitus, Vertigo - Cardiovascular Cariovascular: reports: Decr. exercise tolerance (over the last 2-3 years). denies: Irregular heart rate, Palpitations, Chest pain, Edema, Syncope, Exertional dyspnea - Respiratory Respiratory: reports: Cough (daily for years, no change, not worse, not better), Sputum production (daily, clear, white to thick), Wheezing, SOB with exertion. denies: Snoring, Hemoptysis, Orthopnea, SOB at rest, Apnea - Gastrointestinal Gastrointestinal: denies: Abdominal pain, Abdominal distention, Constipation, Diarrhea, Change in bowel habits - Genitourinary Genitourinary: reports: Frequency, Urgency, Nocturia, Other (large prostate seen on chiroracter pelvic films 04/2017). denies: Dysuria, Hematuria, Flank pain, Urethral discharge - Musculoskeletal Musculoskeletal: reports: Back pain, Muscle aches, Stiffness, Joint pain - Integumentary Integumentary: reports: Rash - Neurological Neurological: reports: Memory problems, Pre-existing deficit. denies: General weakness, Focal weakness - Psychiatric Psychiatric: denies: Depression, Anxiety, Suicidal - Endocrine Endocrine: denies: Polyuria, Polydypsia - Hematologic/Lymphatic Hematologic/Lymphatic: reports: Anemia, Bruising. denies: Petechiae, Blood clots, Lymphadenopathy Exam - Vital Signs Reviewed Vital Signs: Yes Vital Signs: Vital Signs x48h Temp Pulse Pulse Resp BP BP Pulse Ox 10/30/20 13:11 36.6 C 68 20 136/68 H 93 10/30/20 11:39 36.4 C L 89 20 170/84 H 96 10/30/20 07:56 36.4 C L 88 20 163/84 H 96 10/30/20 07:30 100 - Physical Exam General Appearance: positive: No acute distress, Alert, Other (Deeply tanned, lean white male with a full head of hair and a full archuleta sitting upright in his chair in his room, wrapped in warm blankets, watching TV and just ate breakfast. Tells me that he is "okay" and "not too much pain") Eyes Bilateral: positive: PERRL, EOMI ENT: positive: No signs of dehydration, Other (Poor dentition) Neck: positive: No JVD, Lymphadenopathy (R) (shotty), Lymphadenopathy (L) (shotty). negative: Stiff neck Respiratory: positive: No respiratory distress, Wheezes (faint in lower mancini, overall diminished sounds), Other (chest wall hurts over left side>right side and hurts to take a really deep breath.). negative: Rales, Rhonchi Cardiovascular: positive: Regular rate & rhythm, No murmur. negative: JVD present, Gallop/S4 Peripheral Pulses: positive: 1+ Abdomen: positive: Non-tender, No organomegaly, Nml bowel sounds, No distention Skin: positive: Warm, Dry, Other (really tanned) Extremities: positive: Non-tender, Full ROM Neurologic/Psychiatric: positive: CN's nml (2-12), Motor nml, Disoriented to time Conclusion/Plan - Diagnosis Diagnosis: COPD. Without exacerbation. In spite of this patient smoking history, and intermittent use of bronchodilators, I think he is relatively stable considering the amount of rib fractures he has. I think that the sedation and slow response that the surgeon was seeing this morning was most likely due to just having woken up and drifting off to sleep in mid sentence. He did not get any opiates. I had ordered a blood gas but after I evaluated him I have canceled that blood gas. As for his history of high blood pressure, alcohol abuse, macrocytic anemia will follow through with appropriate medical management. Chronic kidney disease stage II. Appears to have acute worsening and has slid into acute kidney disease stage III - Plan Plan: Continue DuoNeb as needed. Add incentive spirometry. Already on lisinopril 40 mg a day for blood pressure and it is controlled Start thiamine and folate orally. No signs of alcohol withdrawal In view of his acute on chronic kidney disease, with limited use of Toradol. Avoid other nephrotoxic agents.Continue IV fluids at 75 cc an hour. - Lab Results Lab results reviewed: Yes Fish Bones: 10/30/20 05:16 10/30/20 06:45
--- NOTE | 2020-10-30 15:26 | XRAY Report ---
PROCEDURE: Chest 2 View X-Ray INDICATIONS: Multiple rib fractures TECHNIQUE: 2 view(s) of the chest. COMPARISON: Prior chest CT 10/29/2020 and also chest single view 06/27/2019. FINDINGS: Surgical changes and devices: None. Lungs and pleura: No pleural effusions or pneumothorax. Lungs are abnormal with hyperexpansion, and a mild interstitial prominence pattern likely reflecting prior smoking history.. Mediastinum: Mediastinal contours are normal. Heart size is normal. Bones and chest wall: No suspicious bony abnormalities. Soft tissues appear unremarkable. IMPRESSION: COPD, probable prior long-standing smoking history. No pneumonia or neoplasm found. Reviewed by: Reji Cadet MD on 10/30/2020 3:25 PM PDT Approved by: Reji Cadet MD on 10/30/2020 3:25 PM PDT Station ID: [id number]
[2020-10-30] MEDS: FOLIC ACID 1 MG TABLET PO SCH (16:26)
[2020-10-30] MEDS: THIAMINE 100 MG TABLET PO SCH (16:26)
--- NOTE | 2020-10-30 16:27 | PHARMACY PROGRESS NOTE ---
- Best Possible Medication History Admit Date and Time: 10/29/201956 Processed by: Pharmacy Medication History completed: Yes Patient Interview: Completed As the person ultimately responsible for medication therapy, providers are able to order a medication from an existing home medication list in [facility] via the "Reconcile Routine" prior to Confirmation of that medication by business support liaison. Such practice is discouraged except when the physician, in their clinical sonia gment, deems that a medical need exists for a medication without regard to previous use.
[2020-10-31] MEDS: KETOROLAC 15 MG/ML VIAL IVP SCH ×4 (01:17→20:09)
[2020-10-31] MEDS: ACETAMINOPHEN 325 MG TABLET PO SCH ×6 (01:17→21:19)
[2020-10-31] MEDS: SODIUM CHLORIDE FLUSH 0.9% 10 ML SYRINGE IVP SCH ×3 (01:18→05:56)
[2020-10-31] MEDS: HYDROmorphone 0.5 MG/0.5 ML SYRINGE IVP PRN ×4 (01:33→21:38)
[2020-10-31] MEDS: PANTOPRAZOLE 40 MG TABLET PO SCH (05:47)
[2020-10-31] MEDS: SODIUM CHLORIDE 0.9% 1,000 ML IV SCH ×2 (08:28→21:43)
[2020-10-31] MEDS: THIAMINE 100 MG TABLET PO SCH (09:25)
[2020-10-31] MEDS: FOLIC ACID 1 MG TABLET PO SCH (09:26)
[2020-10-31] MEDS: ENOXAPARIN 40 MG/0.4 ML SYRINGE SUBQ SCH (09:26)
[2020-10-31] MEDS: PROPRANOLOL 10 MG TABLET PO SCH ×2 (09:27→20:14)
[2020-10-31] MEDS: lisinopriL 20 MG TABLET PO SCH (09:27)
[2020-10-31] MEDS ORDERED: ALBUTEROL NEB 2.5 MG/3 ML INH PRN (12:58)
--- NOTE | 2020-10-31 13:08 | PROVIDER PROGRESS NOTE ---
Progress Note Subjective Hospital day #3 admitted for rib fractures and COPD exacerbation. Continues with pain with activity. No dyspnea. Tolerating diet. Objective Afebrile hemodynamically acceptable General Appearance: positive: No acute distress Eyes Bilateral: positive: Normal inspection ENT: positive: ENT inspection nml Neck: positive: Nml inspection Respiratory: positive: Chest non-tender, No respiratory distress, Breath sounds nml. negative: Wheezes, Rales, Rhonchi Cardiovascular: positive: Regular rate & rhythm Abdomen: positive: No distention, Other. negative: Guarding, Rebound Extremities: positive: Non-tender, Full ROM, Nml appearance Neurologic/Psychiatric: positive: Oriented x3, CN's nml (2-12) Impression CT scan chest October 29: 1. Multiple left-sided rib fractures as described above extending from the fourth to the 10th ribs including displaced lateral fifth and sixth rib fractures and minimally displaced segmental fractures in the seventh and eighth ribs. No pneumothorax. Impression/Plan (1) GI - bowel regimen. GI ppx. (2) SURGERY - no acute intervention at this time. (3) Renal/Lytes - continue IVF. Renal indices stable. Continue to trend. (4) Respiratory - O2 as necessary. Repeat chest x-ray. Appreciate hospitalist input. Continue IS. Ordered nebulizers. (5) Heme - Will continue with DVT ppx. H/H stable. (6) Cardiovascular - HD acceptable. (7) Neuro - Opiate sparring analgesia. Antispasmodics with Robaxin. Neuropathic agents. (8) PT OT
--- NOTE | 2020-10-31 13:30 | XRAY Report ---
PROCEDURE: Chest 1 View X-Ray INDICATIONS: cough, ngt TECHNIQUE: One view of the chest was acquired. COMPARISON: 10/30/2020; CT chest dated 10/30/2019 FINDINGS: Surgical changes and devices: None. Lungs and pleura: There is no pneumothorax. Left basilar patchy opacity. Linear densities at the left lung base are unchanged likely representing atelectasis/scarring. Mediastinum: Mediastinal contours appear normal. Heart size is normal. Bones and chest wall: Multiple left-sided rib fractures are again identified, not significantly jay ed in displacement. No new osseous abnormality. Degenerative changes of the spine. IMPRESSION: Subtle opacity at the left lung base may represent sequela of adjacent volume loss/atelectasis. Under lying infection not completely excluded. Multiple left-sided rib fractures again identified. No pneumothorax. Reviewed by: Karl Baum DO on 10/31/2020 12:29 PM JONAH Approved by: Karl Baum DO on 10/31/2020 12:29 PM JONAH Station ID: [id number]
[2020-10-31] MEDS: SODIUM CHLORIDE FLUSH 0.9% 10 ML SYRINGE IVP PRN (14:12)
--- NOTE | 2020-10-31 14:30 | PROVIDER PROGRESS NOTE ---
Subjective - Prog Note Date Prog Note Date: 10/31/20 Prog Note Time: 14:21 - Subjective Subjective: sitting up in chair. Comfortable. Pleuritic pain is controlled. Trying to do IS. 75-100% of food. Independent with going to BR and getting out of bed to chair. Current Medications - Current Medications Current Medications: Active Medications Acetaminophen (Acetaminophen 325 Mg Tablet) 650 mg PO Q4HR [facility] Last Admin: 10/31/20 14:10 Dose: 650 mg Documented by: Albuterol/Ipratropium (Ipratropium/Albuterol 3 Ml Neb) 3 ml INH Q4HR PRN PRN Reason: Wheezing Enoxaparin Sodium (Enoxaparin 40 Mg/0.4 Ml Syringe) 40 mg SUBQ DAILY [facility] Last Admin: 10/31/20 09:26 Dose: 40 mg Documented by: Folic Acid (Folic Acid 1 Mg Tablet) 1 mg PO DAILY [facility] Last Admin: 10/31/20 09:26 Dose: 1 mg Documented by: Hydromorphone HCl (Hydromorphone 0.5 Mg/0.5 Ml Syringe) 0.5 mg IVP Q2H PRN PRN Reason: PAIN Last Admin: 10/31/20 05:56 Dose: 0.5 mg Documented by: Sodium Chloride (Normal Saline 0.9%) 1,000 mls @ 75 mls/hr IV .[id number] [facility] Last Admin: 10/31/20 08:28 Dose: 75 mls/hr Documented by: Ketorolac Tromethamine (Ketorolac 15 Mg/Ml Vial) 15 mg IVP Q6H [facility] Stop: 11/03/20 19:59 Last Admin: 10/31/20 14:10 Dose: 15 mg Documented by: Lisinopril (Lisinopril 20 Mg Tablet) 40 mg PO DAILY [facility] Last Admin: 10/31/20 09:27 Dose: 40 mg Documented by: Lorazepam (Lorazepam 2 Mg/Ml Vial) 0.5 mg IVP Q1H PRN PRN Reason: Anxiety Pantoprazole Sodium (Pantoprazole 40 Mg Tablet) 40 mg PO QDAC [facility] Last Admin: 10/31/20 05:47 Dose: 40 mg Documented by: Propranolol HCl (Propranolol 10 Mg Tablet) 10 mg PO BID [facility] Last Admin: 10/31/20 09:27 Dose: 10 mg Documented by: Sodium Chloride (Sodium Chloride Flush 0.9% 10 Ml Syringe) 10 ml IVP 0100,090 0,1700 [facility] Last Admin: 10/31/20 05:56 Dose: 10 ml Documented by: Sodium Chloride (Sodium Chloride Flush 0.9% 10 Ml Syringe) 10 ml IVP PRN PRN PRN Reason: NEEDED PER PROVIDER ORDERS Last Admin: 10/31/20 14:12 Dose: 10 ml Documented by: Thiamine HCl (Thiamine 100 Mg Tablet) 100 mg PO DAILY [facility] Last Admin: 10/31/20 09:25 Dose: 100 mg Documented by: No Known Home Medications 10/30/20 Objective - Vital Signs/Intake & Output Reviewed Vital Signs: Yes Vital Signs: Vital Signs x48h Temp Pulse Pulse Resp BP Pulse Ox 10/31/20 12:05 94 10/31/20 12:00 37.3 C 78 18 119/69 88 L 10/31/20 09:20 75 116/71 10/31/20 08:02 36.7 C 84 22 99/54 L 95 Intake & Output: Intake & Output 10/28/20 10/29/20 10/30/20 10/31/20 23:59 23:59 23:59 23:59 Intake Total 1400 3325 1541.25 Output Total 300 250 Balance 1400 3025 1291.25 - Objective General Appearance: positive: Alert, Mild distress Eyes Bilateral: positive: PERRL ENT: positive: No signs of dehydration Neck: positive: No JVD. negative: Stiff neck Respiratory: positive: No respiratory distress, Rhonchi (clear with cough but it hurts left chest to cough), Other (left chest ribs can be felt to click as I feel his chest). negative: Wheezes, Rales Cardiovascular: positive: Regular rate & rhythm. negative: Gallop/S4, Friction rub Abdomen: positive: Non-tender, No organomegaly, Nml bowel sounds, No distention Skin: positive: Warm, Dry. negative: Diaphoresis, Pallor Extremities: positive: Full ROM, No pedal edema Neurologic/Psychiatric: positive: Oriented x3, CN's nml (2-12), Motor nml - Lab Results Fish Bones: 10/30/20 05:16 10/30/20 06:45 Assessment/Plan - Problem List (1) COPD without exacerbation Impression: Although he is an excessive smoker, he has not requested nicotine patch. Cough is controlled. Chest congestion is controlled. DuoNeb's as needed with the last time he used it on October 29. (2) Alcohol abuse Impression: Sister describes him as drinking beer, whiskey, vodka. No signs or physical exam findings of withdrawal. He is on a multivitamin per my request. Thiamine. Folate. Plan, no new orders (3) Chronic kidney disease (CKD), stage III (moderate) Impression: Baseline creatinine appears to be 0.9-1.0. During the stay he has been 1.3. His oral and IV intake is been adequate. He was given 3325 mils alone yesterday. So he is not dehydrated. No symptoms of obstruction with prostate. Plan: We will continue to monitor. Avoid nephrotoxic agents. Qualifiers: Chronic kidney disease stage 3 subtype: stage 3a (GFR 45-59) Qualified Code(s): N18.31 - Chronic kidney disease, stage 3a (4) Multiple fractures of ribs Impression: Admitted as a trauma patient with rib fractures. Being followed by general surgery. Qualifiers: Encounter type: subsequent encounter Fracture type: closed Laterality: left Qualified Code(s): S22.42XA - Multiple fractures of ribs, left side, initial encounter for closed fracture (5) Hypertension Impression: Blood pressure has not been a problem here for him. His home medication of Zestril has been resumed, as well as his Inderal. He did have one episode, ellie ier this morning, a blood pressure 99/54. Then he rebounded back to 119/69. We will continue to monitor and adjust medications as needed. Qualifiers: Hypertension type: essential hypertension Qualified Code(s): I10 - Essential (primary) hypertension
[2020-10-31] MEDS ORDERED: IPRATROPIUM 0.2 MG/ML NEB INH SCH (15:00)
[2020-11-01] MEDS: ACETAMINOPHEN 325 MG TABLET PO SCH ×6 (00:32→20:36)
[2020-11-01] MEDS: HYDROmorphone 0.5 MG/0.5 ML SYRINGE IVP PRN ×4 (00:34→21:55)
[2020-11-01] MEDS: IPRATROPIUM/ALBUTEROL 3 ML NEB INH PRN ×3 (01:25→11:46)
[2020-11-01] MEDS: SODIUM CHLORIDE FLUSH 0.9% 10 ML SYRINGE IVP SCH ×3 (02:33→15:55)
[2020-11-01] MEDS: KETOROLAC 15 MG/ML VIAL IVP SCH ×4 (02:56→20:36)
[2020-11-01 05:10] LABS: BASOPHILS # (AUTO) 0.1 10^3/uL (0.0-0.1); BASOPHILS % (AUTO) 0.5 %; EOSINOPHILS # (AUTO) 0.1 10^3/uL (0.0-0.7); EOSINOPHILS % (AUTO) 0.7 %; HCT - HEMATOCRIT 39.9 % (42.0-52.0); HGB - HEMOGLOBIN 11.7 g/dL (14.0-18.0); LYMPHOCYTES # (AUTO) 1.2 10^3/uL (1.5-3.5); LYMPHOCYTES % (AUTO) 6.4 %; MEAN CORPUSCULAR HEMOGLOBIN 30.2 pg (27.0-31.0); MEAN CORPUSCULAR HGB CONC 29.3 g/dL (32.0-36.0); MEAN CORPUSCULAR VOLUME 103.1 fL (80.0-94.0); MEAN PLATELET VOLUME 9.9 fL (7.4-11.4); MONOCYTES # (AUTO) 1.3 10^3/uL (0.0-1.0); MONOCYTES % (AUTO) 7.2 %; NEUTROPHILS # (AUTO) 15.3 10^3/uL (1.5-6.6); PLT - PLATELET COUNT 268 10^3/uL (130-450); RED BLOOD COUNT 3.87 10^6/uL (4.70-6.10); RED CELL DISTRIBUTION WIDTH 13.9 % (12.0-15.0); WHITE BLOOD COUNT 18.2 x10^3/uL (4.8-10.8)
[2020-11-01 05:22] LABS: ALBUMIN 2.7 g/dL (3.2-5.5); ALBUMIN/GLOBULIN RATIO 0.7 (1.0-2.2); ALKALINE PHOSPHATASE 66 IU/L (42-121); ALT ALANINE AMINOTRANSFERASE < 10 IU/L (10-60); AST ASPARTATE AMINOTRANSFERASE 10 IU/L (10-42); BILIRUBIN,TOTAL 0.4 mg/dL (0.2-1.0); BUN - BLOOD UREA NITROGEN 17 mg/dL (6-20); CALCIUM 8.5 mg/dL (8.5-10.3); CARBON DIOXIDE - CO2 27 mmol/L (21-32); CHLORIDE 106 mmol/L (101-111); CREATININE 0.9 mg/dL (0.6-1.2); GFR - MDRD 86 (>89); GLUCOSE 115 mg/dL (70-100); POTASSIUM 4.4 mmol/L (3.5-5.0); SODIUM 140 mmol/L (135-145); TOTAL PROTEIN 6.7 g/dL (6.7-8.2)
[2020-11-01] MEDS: PANTOPRAZOLE 40 MG TABLET PO SCH (06:37)
[2020-11-01] MEDS ORDERED: PIPERACILLIN/TAZOBACTAM 3.375 GM in SODIUM CHLORIDE 0.9% MINIBAG 100 ML IV ONE (08:00)
[2020-11-01] MEDS: lisinopriL 20 MG TABLET PO SCH (08:04)
[2020-11-01] MEDS: THIAMINE 100 MG TABLET PO SCH (08:05)
[2020-11-01] MEDS: FOLIC ACID 1 MG TABLET PO SCH (08:05)
[2020-11-01] MEDS: ENOXAPARIN 40 MG/0.4 ML SYRINGE SUBQ SCH (08:05)
[2020-11-01] MEDS: PROPRANOLOL 10 MG TABLET PO SCH ×2 (08:05→20:36)
[2020-11-01] MEDS: PIPERACILLIN/TAZOBACTAM 3.375 GM in SODIUM CHLORIDE 0.9% MINIBAG 100 ML IV SCH ×2 (11:29→20:36)
[2020-11-01] MEDS: SODIUM CHLORIDE 0.9% 1,000 ML IV SCH (11:29)
--- NOTE | 2020-11-01 11:59 | PROVIDER PROGRESS NOTE ---
Progress Note Subjective Between yesterday and today, getting a little bit sleepier. Even in spite of no opiates. He was on 1 L nasal cannula and is now needing 2 L nasal cannula for O2 sat of 75% starting at midnight last night. No fever. However tachycardic in the low 100s this morning. He feels like he needs to cough but he cannot bring it up because it hurts too much. Chest x-ray was done yesterday and he had a subtle new opacity at the left lung base and we started Zosyn for pneumonia yesterday. For semiliquid stools between yesterday and today. He continues to ambulate in the room. Respiratory therapy is doing Acapella, incentive spirometry, nebulizers. Eating 100% of his food. Medications: Dilaudid IV as needed pain, ketorolac as needed pain, Tylenol as needed, DuoNeb as needed, Lovenox 40 mg daily, folic acid 1 mg daily, thiamine 100 mg daily, Zestril 40 mg daily, Ativan 0.5 IV push every hour as needed, Protonix 40 p.o. daily, Zosyn started yesterday so today's day #2. Propranolol 10 twice daily. Objective: Vitals have not been recorded by RN since midnight. They were done he just has not had a chance to put them in the EMR. He is afebrile, normotensive, not in any respiratory distress with a rate of around 12. He is on 1-1/2 L nasal cannula to get an O2 sat of 9495%. The gentleman is sitting upright in his chair again. Alert, oriented to why he is here what is happened. Neck is supple. Lungs are developing rhonchi in the left midlung and left lower lobe. Occasional faint and scant wheeze. Bilaterally. Overall lungs are getting tighter and quieter with the wheezing new. I try and get him to cough but he says it hurts too much. But no dullness or egophony. No respiratory distress. PMI normally placed with a regular rate and rhythm Abdomen is soft, hypoactive bowel sounds, nontender. He had a bowel movement yesterday and today. Extremities have evidence of old venous stasis with splotchy hyperpigmentation of the distal and proximal tib-fib skin area. 1+ pitting edema around the ankles. BMP is normal this morning. CBC is with an elevated white cell count of 18.2 from 7.5 on October 30. Hemoglobin slightly lower at 11.7 from 13.8. Platelets 268. Assessment/plan 1. COPD with slight exacerbation today. We are the it security consultant service. General surgery is the admitting service for trauma. Plan: Add steroids, change nebulizers to every 6 hours fixed scheduled dose not as needed 2. Alcohol abuse. So far no symptoms of withdrawal. I have put him on thiamine and folate. 3. Chronic kidney disease stage III. Creatinine appears to improve substantially today. He has been 1.3 since admission and is now 0.9. Continue to push p.o. fluids, and he is on normal saline 75 cc an hour. 4. Multiple fractures of the left rib cage. Post trauma complication is now possibly pneumonia. Being followed by general surgery. 5. Hypertension. Controlled on home meds 6. Small left lower lung infiltrate on chest x-ray yesterday with slight increased oxygen need and today elevated white cell count. Suspect post trauma pneumonia. Zosyn day #2 today. We will continue to follow and monitor. 7. Diarrhea. This is after antibiotics were started. Stool submitted for C. difficile.
[2020-11-01] MEDS: IPRATROPIUM/ALBUTEROL 3 ML NEB INH SCH ×2 (15:33→21:13)
[2020-11-01] MEDS: SODIUM CHLORIDE FLUSH 0.9% 10 ML SYRINGE IVP PRN ×2 (20:37→21:55)
[2020-11-02] MEDS: SODIUM CHLORIDE 0.9% 1,000 ML IV SCH (01:03)
[2020-11-02] MEDS: ACETAMINOPHEN 325 MG TABLET PO SCH ×4 (01:05→13:17)
[2020-11-02] MEDS: KETOROLAC 15 MG/ML VIAL IVP SCH ×3 (01:56→13:17)
[2020-11-02] MEDS: PIPERACILLIN/TAZOBACTAM 3.375 GM in SODIUM CHLORIDE 0.9% MINIBAG 100 ML IV SCH ×2 (03:39→13:16)
[2020-11-02 05:28] LABS: BASOPHILS % (AUTO) 0.8 %; HCT - HEMATOCRIT 36.9 % (42.0-52.0); LYMPHOCYTES % (AUTO) 9.7 %; MEAN CORPUSCULAR HEMOGLOBIN 30.6 pg (27.0-31.0); MEAN CORPUSCULAR HGB CONC 29.8 g/dL (32.0-36.0); MEAN CORPUSCULAR VOLUME 102.8 fL (80.0-94.0); MEAN PLATELET VOLUME 10.1 fL (7.4-11.4); MONOCYTES % (AUTO) 8.1 %; PLT - PLATELET COUNT 238 10^3/uL (130-450); RED BLOOD COUNT 3.59 10^6/uL (4.70-6.10); RED CELL DISTRIBUTION WIDTH 13.8 % (12.0-15.0); WHITE BLOOD COUNT 12.6 x10^3/uL (4.8-10.8)
[2020-11-02 05:30] LABS: ABNORMAL LYMPHS % (MANUAL) 0 %
[2020-11-02 05:35] LABS: ALBUMIN 2.5 g/dL (3.2-5.5); ALBUMIN/GLOBULIN RATIO 0.6 (1.0-2.2); BILIRUBIN,TOTAL 0.4 mg/dL (0.2-1.0); CALCIUM 8.4 mg/dL (8.5-10.3); POTASSIUM 4.1 mmol/L (3.5-5.0); TOTAL PROTEIN 6.4 g/dL (6.7-8.2)
[2020-11-02 05:53] LABS: BAND NEUTROPHILS % (MANUAL) 4 %; DIFFERENTIAL COMMENT MANUAL DIFFERENTIAL; EOSINOPHILS # (MANUAL) 0.5 10^3/uL (0-0.7); LYMPHOCYTES # (MANUAL) 1.5 10^3/uL (1.5-3.5); LYMPHOCYTES % (MANUAL) 12 %; MONOCYTES # (MANUAL) 1.4 10^3/uL (0.0-1.0); NEUTROPHILS # (MANUAL) 9.2 10^3/uL (1.5-6.6); PLATELET ESTIMATE, MANUAL NORMAL (130-450,000) (NORMAL); PLATELET MORPHOLOGY NORMAL APPEARANCE (NORMAL); RBC MORPHOLOGY (MULTIPLE) NORMAL APPEARANCE (NORMAL); WBC MORPHOLOGY (MULTIPLE) NORMAL APPEARANCE (NORMAL)
[2020-11-02] MEDS: SODIUM CHLORIDE FLUSH 0.9% 10 ML SYRINGE IVP SCH ×2 (05:53→08:04)
[2020-11-02] MEDS: PANTOPRAZOLE 40 MG TABLET PO SCH (05:54)
[2020-11-02] MEDS: IPRATROPIUM/ALBUTEROL 3 ML NEB INH SCH ×2 (07:10→11:29)
--- NOTE | 2020-11-02 07:29 | PROVIDER PROGRESS NOTE ---
Progress Note Subjective Hospital day #4 admitted for rib fractures and COPD exacerbation. Continues with pain with activity. No dyspnea. Tolerating diet. Objective Afebrile hemodynamically acceptable General Appearance: positive: No acute distress Eyes Bilateral: positive: Normal inspection ENT: positive: ENT inspection nml Neck: positive: Nml inspection Respiratory: positive: Chest non-tender, No respiratory distress, Breath sounds nml. negative: Wheezes, Rales, Rhonchi Cardiovascular: positive: Regular rate & rhythm Abdomen: positive: No distention, Other. negative: Guarding, Rebound Extremities: positive: Non-tender, Full ROM, Nml appearance Neurologic/Psychiatric: positive: Oriented x3, CN's nml (2-12) Impression CT scan chest October 29: 1. Multiple left-sided rib fractures as described above extending from the fourth to the 10th ribs including displaced lateral fifth and sixth rib fractures and minimally displaced segmental fractures in the seventh and eighth ribs. No pneumothorax. Chest x-ray October 31, 2020 impression: 1. Septal opacity at the left lung base may represent sequelae of adjacent volume loss/atelectasis. Underlying infection not completely excluded. 2. Multiple left-sided rib fractures again identified. No pneumothorax. Impression/Plan (1) GI - bowel regimen. GI ppx. (2) SURGERY - no acute intervention at this time. (3) Renal/Lytes - continue IVF. Renal indices stable. Continue to trend. (4) Respiratory - O2 as necessary. Significant leukocytosis concerning for developing pneumonia. Will start empiric antibiotics. Appreciate hospitalist input. Continue IS. Continue nebulizers. (5) Heme - Will continue with DVT ppx. H/H stable. (6) Cardiovascular - HD acceptable. (7) Neuro - Opiate sparring analgesia. Antispasmodics with Robaxin. Neuropathic agents. (8) PT OT (9) INFECTIOUS DISEASE - Developing pneumonia likely secondary to atelectasis from recent chest wall trauma. Begin antibiotics.
[2020-11-02] MEDS: THIAMINE 100 MG TABLET PO SCH (08:04)
[2020-11-02] MEDS: lisinopriL 20 MG TABLET PO SCH (08:04)
[2020-11-02] MEDS: FOLIC ACID 1 MG TABLET PO SCH (08:04)
[2020-11-02] MEDS: PROPRANOLOL 10 MG TABLET PO SCH (08:04)
[2020-11-02] MEDS: ENOXAPARIN 40 MG/0.4 ML SYRINGE SUBQ SCH (08:04)
[2020-11-02] MEDS: HYDROmorphone 0.5 MG/0.5 ML SYRINGE IVP PRN (08:05)
--- NOTE | 2020-11-02 11:09 | PROVIDER PROGRESS NOTE ---
Subjective - Prog Note Date Prog Note Date: 11/02/20 Prog Note Time: 11:07 - Subjective Subjective: He sitting up in a chair. Nods off and falls asleep but easily wakes up when I walk into the room. Tells me that his pain is controlled as long as he can hold a pillow against his left rib cage with his left arm. If he holds it tight there, coughing is better. Coughing is very congested, bringing up quite a bit of phlegm. No hemoptysis. No fever spikes. He is back down to 1 L nasal cannula and is saturating at 100% with. His main complaint is the rib cage pain. He says that if he did not have that he does she feel pretty good. He is eating 100% of his food. Getting out of the bed and sitting in the chair. Current Medications - Current Medications Current Medications: Active Medications Acetaminophen (Acetaminophen 325 Mg Tablet) 650 mg PO Q4HR [facility] Last Admin: 11/02/20 08:03 Dose: 650 mg Documented by: Albuterol/Ipratropium (Ipratropium/Albuterol 3 Ml Neb) 3 ml INH RTQID [facility] Last Admin: 11/02/20 07:10 Dose: 3 ml Documented by: Enoxaparin Sodium (Enoxaparin 40 Mg/0.4 Ml Syringe) 40 mg SUBQ DAILY [facility] Last Admin: 11/02/20 08:04 Dose: 40 mg Documented by: Folic Acid (Folic Acid 1 Mg Tablet) 1 mg PO DAILY [facility] Last Admin: 11/02/20 08:04 Dose: 1 mg Documented by: Hydromorphone HCl (Hydromorphone 0.5 Mg/0.5 Ml Syringe) 0.5 mg IVP Q2H PRN PRN Reason: PAIN Last Admin: 11/02/20 08:05 Dose: 0.5 mg Documented by: Sodium Chloride (Normal Saline 0.9%) 1,000 mls @ 75 mls/hr IV .[id number] [facility] Last Admin: 11/02/20 01:03 Dose: 75 mls/hr Documented by: Piperacillin Sod/Tazobactam (Sod 3.375 gm/ Sodium Chloride) 100 mls @ 25 mls/hr IV Q8H [facility] Last Infusion: 11/02/20 08:05 Dose: Infused Documented by: Ketorolac Tromethamine (Ketorolac 15 Mg/Ml Vial) 15 mg IVP Q6H [facility] Stop: 11/03/20 19:59 Last Admin: 11/02/20 08:03 Dose: 15 mg Documented by: Lisinopril (Lisinopril 20 Mg Tablet) 40 mg PO DAILY [facility] Last Admin: 11/02/20 08:04 Dose: 40 mg Documented by: Lorazepam (Lorazepam 2 Mg/Ml Vial) 0.5 mg IVP Q1H PRN PRN Reason: Anxiety Pantoprazole Sodium (Pantoprazole 40 Mg Tablet) 40 mg PO QDAC [facility] Last Admin: 11/02/20 05:54 Dose: 40 mg Documented by: Pregabalin (Pregabalin 25 Mg Capsule) 75 mg PO BID [facility] Propranolol HCl (Propranolol 10 Mg Tablet) 10 mg PO BID [facility] Last Admin: 11/02/20 08:04 Dose: 10 mg Documented by: Sodium Chloride (Sodium Chloride Flush 0.9% 10 Ml Syringe) 10 ml IVP 0100,0900,1700 [facility] Last Admin: 11/02/20 08:04 Dose: Not Given Documented by: Sodium Chloride (Sodium Chloride Flush 0.9% 10 Ml Syringe) 10 ml IVP PRN PRN PRN Reason: NEEDED PER PROVIDER ORDERS Last Admin: 11/01/20 21:55 Dose: 10 ml Documented by: Thiamine HCl (Thiamine 100 Mg Tablet) 100 mg PO DAILY [facility] Last Admin: 11/02/20 08:04 Dose: 100 mg Documented by: No Known Home Medications 10/30/20 Objective - Vital Signs/Intake & Output Reviewed Vital Signs: Yes Vital Signs: Vital Signs x48h Temp Pulse Pulse Pulse Resp BP Pulse Ox 11/02/20 08:10 36.7 C 63 18 114/58 L 100 11/02/20 07:10 63 18 11/02/20 04:02 36.4 C L 78 20 116/81 H 96 Intake & Output: Intake & Output 10/30/20 10/31/20 11/01/20 11/02/20 23:59 23:59 23:59 23:59 Intake Total 3325 3075.00 2447.50 1200 Output Total 300 250 400 Balance 3025 2825.00 2047.50 1200 - Objective General Appearance: positive: Alert, Other (Sleepy tall white man sitting upright in a chair. No TV. Catnapping) Eyes Bilateral: positive: PERRL ENT: positive: No signs of dehydration Neck: positive: No JVD. negative: Stiff neck Respiratory: positive: No respiratory distress, Rhonchi (Bilateral and diffuse with left worse than right. Diminished breath sounds left base. No dullness or egophony. No increased respiratory effort, no use of accessory muscles) Cardiovascular: positive: Regular rate & rhythm. negative: Gallop/S4, Friction rub Abdomen: positive: Non-tender, No organomegaly, Nml bowel sounds, No distention Skin: positive: Warm, Dry Extremities: positive: Non-tender, Pedal edema (Right leg slightly worse than left leg. 1+ edema. Distal shins have evidence of old venous stasis with hyperpigmentation that splotchy over the skin. Skin is dry and cracked but no bruising, no redness.) Neurologic/Psychiatric: positive: Oriented x3, CN's nml (2-12), Motor nml - Lab Results Fish Bones: 11/02/20 04:59 11/02/20 04:59 Other Labs: Lab Results x24hrs 11/02/20 11/02/20 Range/Units 04:59 04:59 WBC 12.6 H (4.8-10.8) x10^3/uL RBC 3.59 L (4.70-6.10) 10^6/uL Hgb 11.0 L (14.0-18.0) g/dL Hct 36.9 L (42.0-52.0) % MCV 102.8 H (80.0-94.0) fL MCH 30.6 (27.0-31.0) pg MCHC 29.8 L (32.0-36.0) g/dL RDW 13.8 (12.0-15.0) % Plt Count 238 (130-450) 10^3/uL MPV 10.1 (7.4-11.4) fL Neut # (Auto) Not Reportable Lymph # (Auto) Not Reportable [place] # (Auto) Not Reportable Eos # (Auto) Not Reportable Baso # (Auto) Not Reportable Absolute Nucleated RBC Not Reportable Total Counted 100 Band Neuts % (Manual) 4 (0 - 10) % Abnorm Lymph % (Manual) 0 % Nucleated RBC % Not Reportable Neutrophils # (Manual) 9.2 H (1.5-6.6) 10^3/uL Lymphocytes # (Manual) 1.5 (1.5-3.5) 10^3/uL Monocytes # (Manual) 1.4 H (0.0-1.0) 10^3/uL Eosinophils # (Manual) 0.5 (0-0.7) 10^3/uL Basophils # (Manual) 0.0 (0-0.1) 10^3/uL Differential Comment MANUAL DIFFERENTIAL WBC Morphology NORMAL APPEARANCE (NORMAL) Platelet Estimate NORMAL (130-450,000) (NORMAL) Platelet Morphology NORMAL APPEARANCE (NORMAL) RBC Morph Micro Appear NORMAL APPEARANCE (NORMAL) Sodium 139 (135-145) mmol/L Potassium 4.1 (3.5-5.0) mmol/L Chloride 107 (101-111) mmol/L Carbon Dioxide 25 (21-32) mmol/L Anion Gap 7.0 (6-13) BUN 15 (6-20) mg/dL Creatinine 1.0 (0.6-1.2) mg/dL Estimated GFR (MDRD) 76 L (>89) Glucose 126 H (70-100) mg/dL Calcium 8.4 L (8.5-10.3) mg/dL Total Bilirubin 0.4 (0.2-1.0) mg/dL AST 11 (10-42) IU/L ALT 10 (10-60) IU/L Alkaline Phosphatase 90 (42-121) IU/L Total Protein 6.4 L (6.7-8.2) g/dL Albumin 2.5 L (3.2-5.5) g/dL Globulin 3.9 (2.1-4.2) g/dL Albumin/Globulin Ratio 0.6 L (1.0-2.2) ABX Reporting Has patient been on IV antibiotics over the past 48 hours?: Yes Assessment/Plan - Problem List (1) COPD with exacerbation Impression: When I was first consult, COPD stable and did not need much treatment. Yesterday he developed more wheezing, more cough. He out him on Zosyn for that. 2 days ago chest x-ray showed a developing left lower lobe infiltrate. With the addition of Zosyn, and continued DuoNeb he seems to be doing well today. I have not added steroids. If he does start to have excessive wheezing I will add t hose. Plan: Antibiotics for total of 7 days with today being day 2. If surgery sends him home, I would recommend duoneb, levaquin 750 qd. (2) Alcohol abuse Impression: Sister describes him as drinking beer, whiskey, vodka. No signs or physical exam findings of withdrawal. He is on a multivitamin per my request. Thiamine. Folate. Plan, no new orders (3) Acute on Chronic kidney disease (CKD), stage II (moderate) Impression: Baseline creatinine appears to be 0.9-1.0. During the stay he has been 1.3. His oral and IV intake is been adequate. His creatinine has come down to 0.9 to 1.0 here. Plan: We will continue to monitor. Avoid nephrotoxic agents. (4) Multiple fractures of ribs Impression: Admitted as a trauma patient with rib fractures. Being followed by general surgery. Qualifiers: Encounter type: subsequent encounter Fracture type: closed Laterality: left Qualified Code(s): S22.42XA - Multiple fractures of ribs, left side, initial encounter for closed fracture (5) Hypertension Impression: Blood pressure has not been a problem here for him. His home medication of Zestril has been resumed, as well as his Inderal. [id number] Qualifiers: Hypertension type: essential hypertension Qualified Code(s): I10 - Essential (primary) hypertension (5) Multiple fractures of ribs Qualifiers: Qualified Code(s): S22.42XA - Multiple fractures of ribs, left side, initial encounter for closed fracture (6) Hypertension Qualifiers: Qualified Code(s): I10 - Essential (primary) hypertension
--- NOTE | 2020-11-02 11:52 | Discharge Plan ---
Discharge Plan Problem Reviewed?: Yes Disposition: Home, Self Care Condition: Stable Prescriptions: Propranolol [Inderal] 10 mg PO BID #60 tablet Levofloxacin [Levaquin] 750 mg PO DAILY #10 tablet Pregabalin [Lyrica] 75 mg PO BID #60 tab Diet: Regular Activity Restrictions: 5 pound lifting limit Shower Restrictions: No Driving Restrictions: Yes (No driving) Assessment: Multiple rib fractures Pneumonia COPD exacerbation No Smoking: If you smoke, Please STOP! Call for help. Follow-up with: Marcella Chappell MD [Provider Admit Priv/Credential] -
--- NOTE | 2020-11-02 11:55 | DISCHARGE SUMMARY ---
"Discharge Summary Admit Date: 10/29/20 Discharge Date: 11/02/20 Discharging Provider: Misti Code Status: Attempt Resuscitation Condition at Discharge: Stable Discharge Disposition: 01 Home, Self Care - DIAGNOSES Admission Diagnoses: 1. Multiple rib fractures 2. Uncontrolled pain 3. COPD exacerbation Discharge Diagnoses with Status of Each Condition: 1. Multiple rib fractures-improving 2. Pain-control improved 3. COPD exacerbation-improving. Now with mild left pneumonia. - HPI History of Present Illness: 64-year-old male presents the emergency department for evaluation of shortness of air left-sided chest pain. He reports that 4 nights ago he was with his family around a campfire and he tripped falling onto his left side since then he has had increasing difficulty breathing and shortness of air. He does have a history of COPD but is not oxygen dependent. He believes he takes only albuterol as needed. He had a CT scan in the emergency room that revealed at least 6 left-sided rib fractures with displacement of several. He was treated with albuterol and Atrovent which improved his respiratory status. He was admitted to the floor for observation and supportive care. This morning his whi te count is improved. He says that his pain is about the same as it was. He continues to appear uncomfortable and leans forward sleeping with his oxygen in place. - CONSULTS | PROCEDURES Consultations: Hospitalist Procedures: None - HOSPITAL COURSE Hospital Course: Mr. Sosa was admitted to the MedSurg unit for pain control. Following hydration and pain medication, he improved significantly on the first hospital day. He seemed to be having some difficulty breathing with some wheezes and rales noted on examination. The hospitalist service was consulted for management of COPD. 2 days ago, he developed a mild leukocytosis and findings on the x-ray consistent with early left lung pneumonia or atelectasis. He was started on IV antibiotic therapy and has improved. Today he reports his pain is well controlled, he has no respiratory distress, and he is ready for discharge. He will be discharged to his home in the care of his sister. Discharge medications will include Lyrica 75 mg twice a day, Levaquin 750 mg daily, Tylenol, ibuprofen, and home medications.He will follow-up with me in my office in 2 weeks. - ALLERGIES Allergies/Adverse Reactions: Allergies Allergy/AdvReac Type Severity Reaction Status Date / Time No Known Drug Allergies Allergy Verified 10/29/20 14:58 - MEDICATIONS Home Medications: Ambulatory Orders Medication Instructions Recorded Confirmed Levofloxacin [Levaquin] 750 mg PO DAILY #10 tablet 11/02/20 Pregabalin [Lyrica] 75 mg PO BID #60 tab 11/02/20 Propranolol [Inderal] 10 mg PO BID #60 tablet 11/02/20 lisinopriL [Zestril] 40 mg PO DAILY tablet 11/02/20 - PHYSICAL EXAM AT DISCHARGE General Appearance: positive: No acute distress, Alert Eyes Bilateral: positive: Normal inspection, PERRL, EOMI ENT: positive: ENT inspection nml, Pharynx nml Neck: positive: No JVD Respiratory: positive: No respiratory distress, Rales (Left side at the base) Cardiovascular: positive: Regular rate & rhythm Peripheral Pulses: positive: 0 Abdomen: positive: Non-tender Skin: positive: Color nml Extremities: positive: Non-tender - LABS Result Diagrams: 11/02/20 04:59 11/02/20 04:59 - DIAGNOSTIC IMAGING Diagnostic Imaging Results: Final report reviewed Diagnostic Imaging Results Comments: Chest x-ray in October 31 shows a subtle opacity in the left lung consistent with ea rly pneumonia or atelectasis - QUALITY (Female Hip Fx Only) Was patient sent home on osteoporosis medication?: No - FOLLOW UP Follow Up: [address] Chappell - TIME SPENT Time Spent in Discharge (Minutes): 20"
[2020-11-02] MEDS ORDERED: PREGABALIN 25 MG CAPSULE PO SCH (12:00)
[2020-11-02 12:41] VITALS: BP 118/59
== END 2020-11-02 13:41 | disposition home or self-care (01) | DRG 183 ==
LOC: ED 14:50 → MS2 19:57 → OBSVTOIN 10-31 12:44
PROVIDERS: ADMIT Surgery; ATTEND Surgery
DX: S22.42XA Multiple fractures of ribs, left side, initial encounter for closed fracture (principal); J44.9 Chronic obstructive pulmonary disease, unspecified; J18.9 Pneumonia, unspecified organism; Y92.9 Unspecified place or not applicable; G89.11 Acute pain due to trauma; J44.1 Chronic obstructive pulmonary disease with (acute) exacerbation; I10 Essential (primary) hypertension; Z20.822 Contact with and (suspected) exposure to COVID-19; R53.83 Other fatigue; N17.9 Acute kidney failure, unspecified; W01.0XXA Fall on same level from slipping, tripping and stumbling without subsequent striking against object, initial encounter; N18.30 Chronic kidney disease, stage 3 unspecified; F17.210 Nicotine dependence, cigarettes, uncomplicated; F10.10 Alcohol abuse, uncomplicated; I12.9 Hypertensive chronic kidney disease with stage 1 through stage 4 chronic kidney disease, or unspecified chronic kidney disease; N18.31 Chronic kidney disease, stage 3a; R41.89 Other symptoms and signs involving cognitive functions and awareness; R19.7 Diarrhea, unspecified
CPT/HCPCS: 36415; 71045; 71046; 71101; 71250; 80053; 80306; 83690; 83735; 85025; 87493; 87631; 94640; 96372; 96374; 96375; 96376; 99284; 99285; A9270; G0378; J1170; J1650; 0202U; 82803

== ENCOUNTER 2020-11-06 16:05 | Emergency (ER) | payer MEDICAID, MEDICARE ==
--- OUTSIDE RECORDS SUMMARY | 2020-11-06 16:09 | EXTERNAL MEDICAL SUMMARY RPT | Continuity of Care Document ---
:1955 Demographics Phone Unavailable Preferred Language Unknown Marital Status Unknown Mormon Affiliation Unknown Race Unknown Ethnic Group Unknown Author Organization [facility] Address [address] [place] [address] Phone Care Team Providers Name Role Phone MD Unavailable Unavailable Results test status date ordered by attending specimen elver e platelet_count_estimat unknown [id number] unknown unknown unknown e urea_nitrogen_blood unknown [id number] unknown unknown unk nown Erythrocytes_volume_in unknown [id number] unknown unknown unknown _Blood_by_Automated_cou nt Erythrocyte_distributi unknown [id number] unknown unknown unknown on_width_Ratio_by_Autom ated_count MCV_Entitic_volume_by_ unknown [id number] unknown unknown unknown Automated_count MCH_Entitic_mass_by_Au unknown 15044088 unknown unknown unknown tomated_count Platelets_volume_in_Bl unknown 88943948 unknown unknown unknown ood_by_Automated_count Platelet_mean_volume_E unknown 20030186 unknown unknown unknown ntitic_volume_in_Blood_ by_Rees-Velasquez Hemoglobin_Mass_volume unknown 12719193 unknown unknown unknown _in_Blood leukocyte_count_blood unknown 83017332 unknown unknown u nknown erythrocyte_RBC_count unknown 10452009 unknown unknown u nknown Leukocytes_volume_in_B unknown 20020384 unknown unknown unknown lood_by_Automated_count Glomerular_Filtration_ unknown 85834308 unknown unknown unknown rate platelet_count unknown 96953960 unknown unknown unknown hemoglobin_blood unknown 14340915 unknown unknown unknow n hematocrit_blood unknown 26809269 unknown unknown unknow n potassium_blood unknown 27020549 unknown unknown unknown monocytes_absolute_man unknown 33640789 unknown unknown unknown ual lymphocytes_absolute_m unknown 03773169 unknown unknown unknown anual polymorphonuclear_neut unknown 29515028 unknown unknown unknown rophils_absolute_manual Glomerular_filtration_r unknown 43329158 unknown unknown unknown ate_1.73_sq_M.predicted _among_non-blacks_Volum e_Rate_Area_in_Serum_Pl asma_or_Blood_by_Creati nine-based_formula_MDRD _ Hematocrit_Volume_Frac unknown [id number] unknown unknown unknown tion_of_Blood_by_Automa ted_count bilirubin_serum_total unknown 49387609 unknown unknown u nknown alanine_aminotransfera unknown 35929803 unknown unknown unknown se_SGPT_serum carbon_dioxide_serum_t unknown 22718669 unknown unknown unknown otal aspartate_aminotransfe unknown 60209091 unknown unknown unknown rase_SGOT_serum protein_total_serum unknown 91267402 unknown unknown unk nown blood_glucose unknown 96593101 unknown unknown unknown potassium_blood unknown 49941527 unknown unknown unknown mean_corpuscular_volum unknown 46547261 unknown unknown unknown e_RBC platelet_count_estimat unknown 35021659 unknown unknown unknown e Urea_nitrogen_Mass_vol unknown 79517099 unknown unknown unknown ume_in_Serum_or_Plasma globulin_serum unknown 69474078 unknown unknown unknown alkaline_phosphatase_s unknown 33678519 unknown unknown unknown criselda Sodium_Moles_volume_in unknown 46426460 unknown unknown unknown _Serum_or_Plasma Protein_Mass_volume_in unknown 17600868 unknown unknown unknown _Serum_or_Plasma anion_gap_serum unknown 07014305 unknown unknown unknown mean_platelet_volume unknown 03369495 unknown unknown un known Glucose_Mass_volume_in unknown 30895413 unknown unknown unknown _Serum_or_Plasma Globulin_Mass_volume_i unknown 98027355 unknown unknown unknown n_Serum Creatinine_Mass_volume unknown 83936259 unknown unknown unknown _in_Serum_or_Plasma Chloride_Moles_volume_ unknown 31455598 unknown unknown unknown in_Serum_or_Plasma carbon_dioxide_serum_t unknown 80172728 unknown unknown unknown otal Calcium_Moles_volume_i unknown 36507529 unknown unknown unknown n_Serum_or_Plasma albumin_serum unknown 28674985 unknown unknown unknown Bilirubin.total_Mass_v unknown 23774083 unknown unknown unknown olume_in_Serum_or_Plasm a Aspartate_aminotransfe unknown 94082112 unknown unknown unknown rase_Enzymatic_activity _volume_in_Serum_or_Pla sma Anion_gap_4_in_Serum_o unknown 53418003 unknown unknown unknown r_Plasma creatinine_serum unknown 52514601 unknown unknown unknow n Alkaline_phosphatase_E unknown 51344594 unknown unknown unknown nzymatic_activity_volum e_in_Blood Albumin_Globulin_Mass_ unknown 09941879 unknown unknown unknown Ratio_in_Serum_or_Plasm a Albumin_Mass_volume_in unknown 14487626 unknown unknown unknown _Serum_or_Plasma Alanine_aminotransfera unknown 83273643 unknown unknown unknown se_Enzymatic_activity_v olume_in_Serum_or_Plasm a mean_corpuscular_hemog unknown 89506256 unknown unknown unknown lobin_concentration_rbc sodium_serum unknown 76682446 unknown unknown unknown albumin_globulin_ratio unknown 95941374 unknown unknown unknown _serum chloride_serum unknown 82271500 unknown unknown unknown calcium_serum unknown 61943597 unknown unknown unknown total_cells_counted_bl unknown 72062394 unknown unknown unknown ood mean_corpuscular_hemog unknown 33343848 unknown unknown unknown lobin_RBC red_blood_cell_distrib unknown 16686256 unknown unknown unknown ution_width T unknown 78268034 unknown unknown unknown T unknown 86365141 unknown unknown unknown T unknown 66731981 unknown unknown unknown TOTAL_CELLS_COUNTED unknown 29201750 unknown unknown unk nown T unknown 67163599 unknown unknown unknown T unknown 26639406 unknown unknown unknown T unknown 24328317 unknown unknown unknown T unknown 07468765 unknown unknown unknown PLATELET_ESTIMATE_MANU unknown 62082721 unknown unknown unknown AL T unknown 22429432 unknown unknown unknown T unknown 70465716 unknown unknown unknown NEUTROPHILS_MANUAL_ unknown 74918609 unknown unknown unk nown T unknown 06718914 unknown unknown unknown T unknown 64873744 unknown unknown unknown T unknown 61832544 unknown unknown unknown MONOCYTES_MANUAL_ unknown 34550521 unknown unknown unkno wn T unknown 38442690 unknown unknown unknown T unknown 04498622 unknown unknown unknown T unknown 48807289 unknown unknown unknown T unknown 41281111 unknown unknown unknown LYMPHOCYTES_MANUAL_ unknown 09871022 unknown unknown unk nown T unknown 89756644 unknown unknown unknown T unknown 18454603 unknown unknown unknown T unknown 40950301 unknown unknown unknown T unknown 49128146 unknown unknown unknown T unknown 14099740 unknown unknown unknown T unknown 46269127 unknown unknown unknown GFR_-_MDRD unknown 73051552 unknown unknown unknown T unknown 70500953 unknown unknown unknown T unknown 24013992 unknown unknown unknown T unknown 38172986 unknown unknown unknown T unknown 16962342 unknown unknown unknown T unknown 62229041 unknown unknown unknown T unknown 67294282 unknown unknown unknown BILIRUBIN_TOTAL unknown 45091524 unknown unknown unknown T unknown 01105053 unknown unknown unknown T unknown 44059877 unknown unknown unknown T unknown 26274266 unknown unknown unknown ALT_ALANINE_AMINOTRANS unknown 14397654 unknown unknown unknown FERASE ALKALINE_PHOSPHATASE unknown 08708001 unknown unknown un known T unknown 89542679 unknown unknown unknown T unknown 71452650 unknown unknown unknown ALBUMIN_GLOBULIN_RATIO unknown 30290634 unknown unknown unknown urea_nitrogen_blood unknown 41737549 unknown unknown unk nown Erythrocytes_volume_in unknown 34976158 unknown unknown unknown _Blood_by_Automated_cou nt Erythrocyte_distributi unknown 77186147 unknown unknown unknown on_width_Ratio_by_Autom ated_count MCV_Entitic_volume_by_ unknown 76680531 unknown unknown unknown Automated_count MCH_Entitic_mass_by_Au unknown 03557403 unknown unknown unknown tomated_count Platelets_volume_in_Bl unknown 10493660 unknown unknown unknown ood_by_Automated_count Platelet_mean_volume_E unknown 45255523 unknown unknown unknown ntitic_volume_in_Blood_ by_Rees-Velasquez neutrophil_count_blood unknown 89669255 unknown unknown unknown monocyte_count_blood unknown 31986324 unknown unknown un known lymphocyte_count_blood unknown 97473307 unknown unknown unknown Hemoglobin_Mass_volume unknown 30859559 unknown unknown unknown _in_Blood eosinophil_count_blood unknown 62200637 unknown unknown unknown Basophils_volume_in_Bl unknown 35708389 unknown unknown unknown ood_by_Manual_count leukocyte_count_blood unknown 82511027 unknown unknown u nknown erythrocyte_RBC_count unknown 75364028 unknown unknown u nknown Leukocytes_volume_in_B unknown 75889079 unknown unknown unknown lood_by_Automated_count Glomerular_Filtration_ unknown 35560516 unknown unknown unknown rate platelet_count unknown 26392580 unknown unknown unknown hemoglobin_blood unknown 51416419 unknown unknown unknow n hematocrit_blood unknown 35422792 unknown unknown unknow n potassium_blood unknown 29263410 unknown unknown unknown Glomerular_filtration_r unknown 36842435 unknown unknown unknown ate_1.73_sq_M.predicted _among_non-blacks_Volum e_Rate_Area_in_Serum_Pl asma_or_Blood_by_Creati nine-based_formula_MDRD _ Hematocrit_Volume_Frac unknown 94990624 unknown unknown unknown tion_of_Blood_by_Automa ted_count bilirubin_serum_total unknown 02023354 unknown unknown u nknown alanine_aminotransfera unknown 77773838 unknown unknown unknown se_SGPT_serum carbon_dioxide_serum_t unknown 13396635 unknown unknown unknown otal aspartate_aminotransfe unknown 84290741 unknown unknown unknown rase_SGOT_serum protein_total_serum unknown 49282587 unknown unknown unk nown blood_glucose unknown 19792111 unknown unknown unknown potassium_blood unknown 16203832 unknown unknown unknown magnesium_serum unknown 14325810 unknown unknown unknown mean_corpuscular_volum unknown 33222524 unknown unknown unknown e_RBC Urea_nitrogen_Mass_vol unknown 84865963 unknown unknown unknown ume_in_Serum_or_Plasma globulin_serum unknown 91652302 unknown unknown unknown alkaline_phosphatase_s unknown 56966327 unknown unknown unknown criselda Sodium_Moles_volume_in unknown 79295340 unknown unknown unknown _Serum_or_Plasma Protein_Mass_volume_in unknown 22600053 unknown unknown unknown _Serum_or_Plasma eosinophil_count_blood unknown 08424032 unknown unknown unknown anion_gap_serum unknown 42868425 unknown unknown unknown mean_platelet_volume unknown 69205134 unknown unknown un known Magnesium_Moles_volume unknown 82032547 unknown unknown unknown _in_Serum_or_Plasma basophil_count_blood unknown 64144338 unknown unknown un known monocyte_count_blood unknown 84745733 unknown unknown un known lymphocyte_count_blood unknown 78095904 unknown unknown unknown neutrophil_count_blood unknown 69592905 unknown unknown unknown Glucose_Mass_volume_in unknown 00140715 unknown unknown unknown _Serum_or_Plasma Globulin_Mass_volume_i unknown 84373386 unknown unknown unknown n_Serum Creatinine_Mass_volume unknown 87334924 unknown unknown unknown _in_Serum_or_Plasma Chloride_Moles_volume_ unknown 42963279 unknown unknown unknown in_Serum_or_Plasma carbon_dioxide_serum_t unknown 28686293 unknown unknown unknown otal Calcium_Moles_volume_i unknown 62831052 unknown unknown unknown n_Serum_or_Plasma albumin_serum unknown 35125783 unknown unknown unknown Bilirubin.total_Mass_v unknown 19966656 unknown unknown unknown olume_in_Serum_or_Plasm a Aspartate_aminotransfe unknown 28590188 unknown unknown unknown rase_Enzymatic_activity _volume_in_Serum_or_Pla sma Anion_gap_4_in_Serum_o unknown 82601912 unknown unknown unknown r_Plasma creatinine_serum unknown 45826007 unknown unknown unknow n Alkaline_phosphatase_E unknown 06701043 unknown unknown unknown nzymatic_activity_volum e_in_Blood Albumin_Globulin_Mass_ unknown 30820250 unknown unknown unknown Ratio_in_Serum_or_Plasm a Albumin_Mass_volume_in unknown 81475065 unknown unknown unknown _Serum_or_Plasma Alanine_aminotransfera unknown 34860636 unknown unknown unknown se_Enzymatic_activity_v olume_in_Serum_or_Plasm a mean_corpuscular_hemog unknown 45126609 unknown unknown unknown lobin_concentration_rbc sodium_serum unknown 37127140 unknown unknown unknown albumin_globulin_ratio unknown 72937684 unknown unknown unknown _serum chloride_serum unknown 35853724 unknown unknown unknown calcium_serum unknown 93066634 unknown unknown unknown mean_corpuscular_hemog unknown 14466670 unknown unknown unknown lobin_RBC red_blood_cell_distrib unknown 52805802 unknown unknown unknown ution_width T unknown 97166332 unknown unknown unknown T unknown 81955650 unknown unknown unknown T unknown 42246598 unknown unknown unknown T unknown 07337448 unknown unknown unknown T unknown 83665370 unknown unknown unknown T unknown 28364006 unknown unknown unknown NEUTROPHILS_AUTO_ unknown 93525580 unknown unknown unkno wn T unknown 61138563 unknown unknown unknown T unknown 90225462 unknown unknown unknown T unknown 58339162 unknown unknown unknown MONOCYTES_AUTO_ unknown 54140312 unknown unknown unknown T unknown 85754096 unknown unknown unknown T unknown 24362746 unknown unknown unknown T unknown 88448021 unknown unknown unknown T unknown 67990914 unknown unknown unknown T unknown 29776465 unknown unknown unknown LYMPHOCYTES_AUTO_ unknown 00153575 unknown unknown unkno wn T unknown 60101643 unknown unknown unknown T unknown 70030237 unknown unknown unknown T unknown 06978019 unknown unknown unknown T unknown 11183804 unknown unknown unknown T unknown 05689346 unknown unknown unknown T unknown 50095758 unknown unknown unknown T unknown 03432874 unknown unknown unknown GFR_-_MDRD unknown 98017714 unknown unknown unknown T unknown 31804605 unknown unknown unknown EOSINOPHILS_AUTO_ unknown 10953258 unknown unknown unkno wn T unknown 60919483 unknown unknown unknown T unknown 01537017 unknown unknown unknown T unknown 76028161 unknown unknown unknown T unknown 16442351 unknown unknown unknown T unknown 54927814 unknown unknown unknown T unknown 66357801 unknown unknown unknown BILIRUBIN_TOTAL unknown 51346706 unknown unknown unknown BASOPHILS_AUTO_ unknown 77818027 unknown unknown unknown T unknown 63313829 unknown unknown unknown T unknown 04121480 unknown unknown unknown T unknown 07873235 unknown unknown unknown T unknown 17710651 unknown unknown unknown ALT_ALANINE_AMINOTRANS unknown 22757585 unknown unknown unknown FERASE ALKALINE_PHOSPHATASE unknown 64107255 unknown unknown un known T unknown 56221268 unknown unknown unknown T unknown 47923557 unknown unknown unknown ALBUMIN_GLOBULIN_RATIO unknown 64078586 unknown unknown unknown facility observation status value reference units lab code abn ormal line range notes All platelet_cou unknown NORMAL unknown _9317-9 unknow n unknown nt_estimate (130-450 ,000) All urea_nitroge unknown 15 unknown mg/dL _9 unknown unknown n_blood All Erythrocytes unknown 3.59 10 unknown _789-8 unknow n unknown _volume_in_Bl 6/UL ood_by_Automa ted_count All Erythrocyte_ unknown 13.8 unknown % _788-0 unknown unknown distribution_ width_Ratio_b y_Automated_c ount All MCV_Entitic_ unknown 102.8 unknown fL _787-2 unknown unknown volume_by_Aut omated_count All MCH_Entitic_ unknown 30.6 unknown pg _785-6 unknown unknown mass_by_Autom ated_count All Platelets_vo unknown 238 10 unknown _777-3 unknown unknown lume_in_Blood 3/UL _by_Automated _count All Platelet_mea unknown 10.1 unknown fL _776-5 unknown unknown n_volume_Enti tic_volume_in _Blood_by_Ree s-Velasquez All Hemoglobin_M unknown 11.0 unknown g/dL _718-7 unknown unknown ass_volume_in _Blood All leukocyte_co unknown 12.6 unknown _68 unknown unknown unt_blood X10 3/UL All erythrocyte_ unknown 3.59 10 unknown _67 unknow n unknown RBC_count 6/UL All Leukocytes_v unknown 12.6 unknown _6690-2 unknow n unknown olume_in_Bloo X10 3/UL d_by_Automate d_count All Glomerular_F unknown 76 unknown mL/min _66455 unknown unknown iltration_rat e All platelet_cou unknown 238 10 unknown _66 unknown unknown nt 3/UL All hemoglobin_b unknown 11.0 unknown g/dL _65 unknown unknown lood All hematocrit_b unknown 36.9 unknown % _64 unknown unknown lood All potassium_bl unknown 4.1 unknown meq/L _6298-4 unknow n unknown ood All monocytes_ab unknown 1.4 10 unknown _52323 unknown unknown solute_manual 3/UL All lymphocytes_ unknown 1.5 10 unknown _52322 unknown unknown absolute_manu 3/UL al All polymorphonu unknown 9.2 10 unknown _52320 unknown unknown clear_neutrop 3/UL hils_absolute _manual All Glomerular_fi unknown 76 unknown mL/min _48642-3 unkno wn unknown ltration_rate _1.73_sq_M.pr edicted_among _non-blacks_V olume_Rate_Ar ea_in_Serum_P lasma_or_Bloo d_by_Creatini ne-based_form ula_MDRD_ All Hematocrit_V unknown 36.9 unknown % _4544-3 unknow n unknown olume_Fractio n_of_Blood_by _Automated_co unt All bilirubin_se unknown 0.4 unknown mg/dL _43 unknown unknown rum_total All alanine_amin unknown 10 unknown U/L _40 unknown unknown otransferase_ SGPT_serum All carbon_dioxi unknown 25 unknown mmol/L _3962 unknown unknown de_serum_tota l All aspartate_am unknown 11 unknown U/L _39 unknown unknown inotransferas e_SGOT_serum All protein_tota unknown 6.4 unknown g/dL _36 unknown unknown l_serum All blood_glucos unknown 126 unknown mg/dL _3565 unknown unknown e All potassium_bl unknown 4.1 unknown meq/L _3483 unknown unknown ood All mean_corpusc unknown 102.8 unknown fL _315 unknown unknown ular_volume_R BC All platelet_cou unknown NORMAL unknown _3109 unknown unknown nt_estimate (130-450 ,000) All Urea_nitroge unknown 15 unknown mg/dL _3094-0 unknow n unknown n_Mass_volume _in_Serum_or_ Plasma All globulin_ser unknown 3.9 unknown _3059 unknown unknown um All alkaline_pho unknown 90 unknown U/L _3 unknown unknown sphatase_seru m All Sodium_Moles unknown 139 unknown mmol/L _2951-2 unknow n unknown _volume_in_Se rum_or_Plasma All Protein_Mass unknown 6.4 unknown g/dL _2885-2 unknow n unknown _volume_in_Se rum_or_Plasma All anion_gap_se unknown 7.0 unknown _279 unknown unknown rum All mean_platele unknown 10.1 unknown fL _2784 unknown unknown t_volume All Glucose_Mass unknown 126 unknown mg/dL _2345-7 unknow n unknown _volume_in_Se rum_or_Plasma All Globulin_Mas unknown 3.9 unknown _2336-6 unknow n unknown s_volume_in_S criselda All Creatinine_M unknown 1.0 unknown mg/dL _2160-0 unknow n unknown ass_volume_in _Serum_or_Pla sma All Chloride_Mol unknown 107 unknown mmol/L _5-0 unknow n unknown es_volume_in_ Serum_or_Plas ma All carbon_dioxi unknown 25 unknown mmol/L _2027-9 unknow n unknown de_serum_tota l All Calcium_Mole unknown 8.4 unknown mg/dL _1999-8 unknow n unknown s_volume_in_S erum_or_Plasm a All albumin_seru unknown 2.5 unknown g/dL _2 unknown unknown m All Bilirubin.to unknown 0.4 unknown mg/dL _1974-2 unknow n unknown tal_Mass_volu me_in_Serum_o r_Plasma All Aspartate_am unknown 11 unknown U/L _1920-8 unknow n unknown inotransferas e_Enzymatic_a ctivity_volum e_in_Serum_or _Plasma All Anion_gap_4_ unknown 7.0 unknown _1863-0 unknow n unknown in_Serum_or_P lasma All creatinine_s unknown 1.0 unknown mg/dL _18 unknown unknown criselda All Alkaline_pho unknown 90 unknown U/L _1783-0 unknow n unknown sphatase_Enzy matic_activit y_volume_in_B lood All Albumin_Glob unknown 0.6 unknown _1759-0 unknow n unknown ulin_Mass_Rat io_in_Serum_o r_Plasma All Albumin_Mass unknown 2.5 unknown g/dL _1751-7 unknow n unknown _volume_in_Se rum_or_Plasma All Alanine_amin unknown 10 unknown U/L _1742-6 unknow n unknown otransferase_ Enzymatic_act ivity_volume_ in_Serum_or_P lasma All mean_corpusc unknown 29.8 unknown g/dL _17029 unknown unknown ular_hemoglob in_concentrat ion_rbc All sodium_serum unknown 139 unknown mmol/L _159 unknown unknown All albumin_glob unknown 0.6 unknown _146 unknown unknown ulin_ratio_se rum All chloride_ser unknown 107 unknown mmol/L _13 unknown unknown um All calcium_seru unknown 8.4 unknown mg/dL _11 unknown unknown m All total_cells_ unknown 100 unknown _1063000 unkno wn unknown counted_blood 01 All mean_corpusc unknown 30.6 unknown pg _1031 unknown unknown ular_hemoglob in_RBC All red_blood_ce unknown 13.8 unknown % _1030 unknown unknown ll_distributi on_width All T unknown 12.6 unknown WBC unknown unkn own X10 3/UL All T unknown 100 unknown TOT_CELL unknown un known S_COUNT All T unknown 0.4 unknown mg/dL TOTAL_BI unknown un known LI All TOTAL_CELLS_ unknown 100 unknown TCC unknown unknown COUNTED All T unknown 13.8 unknown % RDW unknown unkn own All T unknown 3.59 10 unknown RBC unknown unk nown 6/UL All T unknown 6.4 unknown g/dL PRO_TOTA unknown un known L All T unknown NORMAL unknown PLT_EST unknown unk nown (130-450 ,000) All PLATELET_EST unknown NORMAL unknown PLTEST unknown unknown IMATE_MANUAL (130-450 ,000) All T unknown 238 10 unknown PLT unknown unkn own 3/UL All T unknown 9.2 10 unknown NEUT_MAN unknown un known 3/UL UAL_ All NEUTROPHILS_ unknown 9.2 10 unknown NEUT_M unknown unknown MANUAL_ 3/UL All T unknown 139 unknown mmol/L NA unknown unkn own All T unknown 10.1 unknown fL MPV unknown unkn own All T unknown 1.4 10 unknown MONO_MAN unknown un known 3/UL UAL_ All MONOCYTES_MA unknown 1.4 10 unknown MONO_M unknown unknown NUAL_ 3/UL All T unknown 102.8 unknown fL MCV unknown unkn own All T unknown 29.8 unknown g/dL MCHC unknown unkn own All T unknown 30.6 unknown pg MCH unknown unkn own All T unknown 1.5 10 unknown LYMPH_MA unknown un known 3/UL NUAL_ All LYMPHOCYTES_ unknown 1.5 10 unknown LYMPH_M unknow n unknown MANUAL_ 3/UL All T unknown 4.1 unknown meq/L K unknown unkn own All T unknown 11.0 unknown g/dL HGB unknown unkn own All T unknown 36.9 unknown % HCT unknown unkn own All T unknown 126 unknown mg/dL GLU unknown unkn own All T unknown 3.9 unknown GLOB unknown unkn own All T unknown 76 unknown mL/min GFR_-_MD unknown un known RD All GFR_-_MDRD unknown 76 unknown mL/min GFR unknown unknown All T unknown 7.0 unknown GAP unknown unkn own All T unknown 1.0 unknown mg/dL CREAT unknown unkn own All T unknown 25 unknown mmol/L CO2 unknown unkn own All T unknown 107 unknown mmol/L CL unknown unkn own All T unknown 8.4 unknown mg/dL CA unknown unkn own All T unknown 15 unknown mg/dL BUN unknown unkn own All BILIRUBIN_TO unknown 0.4 unknown mg/dL BILIT unknown unknown COLE All T unknown 0.6 unknown A_G_RATI unknown un known O All T unknown 11 unknown U/L AST unknown unkn own All T unknown 10 unknown U/L ALT_SGPT unknown un known _ All ALT_ALANINE_ unknown 10 unknown U/L ALT unknown unknown AMINOTRANSFER ASE All ALKALINE_PHO unknown 90 unknown U/L ALP unknown unknown SPHATASE All T unknown 90 unknown U/L ALK_PHOS unknown un known All T unknown 2.5 unknown g/dL ALB unknown unkn own All ALBUMIN_GLOB unknown 0.6 unknown AGRATIO unknow n unknown ULIN_RATIO All urea_nitroge unknown 38 unknown mg/dL _9 unknown unknown n_blood All Erythrocytes unknown 3.79 10 unknown _789-8 unknow n unknown _volume_in_Bl 6/UL ood_by_Automa ted_count All Erythrocyte_ unknown 13.9 unknown % _788-0 unknown unknown distribution_ width_Ratio_b y_Automated_c ount All MCV_Entitic_ unknown 100.3 unknown fL _787-2 unknown unknown volume_by_Aut omated_count All MCH_Entitic_ unknown 30.9 unknown pg _785-6 unknown unknown mass_by_Autom ated_count All Platelets_vo unknown 260 10 unknown _777-3 unknown unknown lume_in_Blood 3/UL _by_Automated _count All Platelet_mea unknown 9.7 unknown fL _776-5 unknown unknown n_volume_Enti tic_volume_in _Blood_by_Ree s-Velasquez All neutrophil_c unknown 4.7 10 unknown _752-6 unknown unknown ount_blood 3/UL All monocyte_cou unknown 0.7 10 unknown _743-5 unknown unknown nt_blood 3/UL All lymphocyte_c unknown 1.8 10 unknown _732-8 unknown unknown ount_blood 3/UL All Hemoglobin_M unknown 11.7 unknown g/dL _718-7 unknown unknown ass_volume_in _Blood All eosinophil_c unknown 0.1 10 unknown _712-0 unknown unknown ount_blood 3/UL All Basophils_vo unknown 0.0 10 unknown _705-4 unknown unknown lume_in_Blood 3/UL _by_Manual_co unt All leukocyte_co unknown 7.5 X10 unknown _68 unknow n unknown unt_blood 3/UL All erythrocyte_ unknown 3.79 10 unknown _67 unknow n unknown RBC_count 6/UL All Leukocytes_v unknown 7.5 X10 unknown _6690-2 unkno wn unknown olume_in_Bloo 3/UL d_by_Automate d_count All Glomerular_F unknown 56 unknown mL/min _66455 unknown unknown iltration_rat e All platelet_cou unknown 260 10 unknown _66 unknown unknown nt 3/UL All hemoglobin_b unknown 11.7 unknown g/dL _65 unknown unknown lood All hematocrit_b unknown 38.0 unknown % _64 unknown unknown lood All potassium_bl unknown 4.4 unknown meq/L _6298-4 unknow n unknown ood All Glomerular_fi unknown 56 unknown mL/min _48642-3 unkno wn unknown ltration_rate _1.73_sq_M.pr edicted_among _non-blacks_V olume_Rate_Ar ea_in_Serum_P lasma_or_Bloo d_by_Creatini ne-based_form ula_MDRD_ All Hematocrit_V unknown 38.0 unknown % _4544-3 unknow n unknown olume_Fractio n_of_Blood_by _Automated_co unt All bilirubin_se unknown 0.9 unknown mg/dL _43 unknown unknown rum_total All alanine_amin unknown 11 unknown U/L _40 unknown unknown otransferase_ SGPT_serum All carbon_dioxi unknown 26 unknown mmol/L _3962 unknown unknown de_serum_tota l All aspartate_am unknown 14 unknown U/L _39 unknown unknown inotransferas e_SGOT_serum All protein_tota unknown 7.8 unknown g/dL _36 unknown unknown l_serum All blood_glucos unknown 107 unknown mg/dL _3565 unknown unknown e All potassium_bl unknown 4.4 unknown meq/L _3483 unknown unknown ood All magnesium_se unknown 2.3 unknown mg/dL _32 unknown unknown rum All mean_corpusc unknown 100.3 unknown fL _315 unknown unknown ular_volume_R BC All Urea_nitroge unknown 38 unknown mg/dL _3094-0 unknow n unknown n_Mass_volume _in_Serum_or_ Plasma All globulin_ser unknown 4.4 unknown _3059 unknown unknown um All alkaline_pho unknown 75 unknown U/L _3 unknown unknown sphatase_seru m All Sodium_Moles unknown 136 unknown mmol/L _2951-2 unknow n unknown _volume_in_Se rum_or_Plasma All Protein_Mass unknown 7.8 unknown g/dL _2885-2 unknow n unknown _volume_in_Se rum_or_Plasma All eosinophil_c unknown 0.1 10 unknown _285 unknown unknown ount_blood 3/UL All anion_gap_se unknown 10.0 unknown _279 unknown unknown rum All mean_platele unknown 9.7 unknown fL _2784 unknown unknown t_volume All Magnesium_Mo unknown 2.3 unknown mg/dL _2601-3 unknow n unknown les_volume_in _Serum_or_Pla sma All basophil_cou unknown 0.0 10 unknown _2427 unknown unknown nt_blood 3/UL All monocyte_cou unknown 0.7 10 unknown _2422 unknown unknown nt_blood 3/UL All lymphocyte_c unknown 1.8 10 unknown _2420 unknown unknown ount_blood 3/UL All neutrophil_c unknown 4.7 10 unknown _2418 unknown unknown ount_blood 3/UL All Glucose_Mass unknown 107 unknown mg/dL _2345-7 unknow n unknown _volume_in_Se rum_or_Plasma All Globulin_Mas unknown 4.4 unknown _2336-6 unknow n unknown s_volume_in_S criselda All Creatinine_M unknown 1.3 unknown mg/dL _2160-0 unknow n unknown ass_volume_in _Serum_or_Pla sma All Chloride_Mol unknown 100 unknown mmol/L _5-0 unknow n unknown es_volume_in_ Serum_or_Plas ma All carbon_dioxi unknown 26 unknown mmol/L _2027-9 unknow n unknown de_serum_tota l All Calcium_Mole unknown 8.8 unknown mg/dL _1999-8 unknow n unknown s_volume_in_S erum_or_Plasm a All albumin_seru unknown 3.4 unknown g/dL _2 unknown unknown m All Bilirubin.to unknown 0.9 unknown mg/dL _1974-2 unknow n unknown tal_Mass_volu me_in_Serum_o r_Plasma All Aspartate_am unknown 14 unknown U/L _192-8 unknow n unknown inotransferas e_Enzymatic_a ctivity_volum e_in_Serum_or _Plasma All Anion_gap_4_ unknown 10.0 unknown _1863-0 unknow n unknown in_Serum_or_P lasma All creatinine_s unknown 1.3 unknown mg/dL _18 unknown unknown criselda All Alkaline_pho unknown 75 unknown U/L _1783-0 unknow n unknown sphatase_Enzy matic_activit y_volume_in_B lood All Albumin_Glob unknown 0.8 unknown _1759-0 unknow n unknown ulin_Mass_Rat io_in_Serum_o r_Plasma All Albumin_Mass unknown 3.4 unknown g/dL _1751-7 unknow n unknown _volume_in_Se rum_or_Plasma All Alanine_amin unknown 11 unknown U/L _1742-6 unknow n unknown otransferase_ Enzymatic_act ivity_volume_ in_Serum_or_P lasma All mean_corpusc unknown 30.8 unknown g/dL _17029 unknown unknown ular_hemoglob in_concentrat ion_rbc All sodium_serum unknown 136 unknown mmol/L _159 unknown unknown All albumin_glob unknown 0.8 unknown _146 unknown unknown ulin_ratio_se rum All chloride_ser unknown 100 unknown mmol/L _13 unknown unknown um All calcium_seru unknown 8.8 unknown mg/dL _11 unknown unknown m All mean_corpusc unknown 30.9 unknown pg _1031 unknown unknown ular_hemoglob in_RBC All red_blood_ce unknown 13.9 unknown % _1030 unknown unknown ll_distributi on_width All T unknown 7.5 X10 unknown WBC unknown unk nown 3/UL All T unknown 0.9 unknown mg/dL TOTAL_BI unknown un known LI All T unknown 13.9 unknown % RDW unknown unkn own All T unknown 3.79 10 unknown RBC unknown unk nown 6/UL All T unknown 7.8 unknown g/dL PRO_TOTA unknown un known L All T unknown 260 10 unknown PLT unknown unkn own 3/UL All NEUTROPHILS_ unknown 4.7 10 unknown NE_ unknown unknown AUTO_ 3/UL All T unknown 4.7 10 unknown NEUT_AUT unknown un known 3/UL O_ All T unknown 136 unknown mmol/L NA unknown unkn own All T unknown 9.7 unknown fL MPV unknown unkn own All MONOCYTES_AU unknown 0.7 10 unknown MO_ unknown unknown TO_ 3/UL All T unknown 0.7 10 unknown MONO_AUT unknown un known 3/UL O_ All T unknown 2.3 unknown mg/dL MG unknown unkn own All T unknown 100.3 unknown fL MCV unknown unkn own All T unknown 30.8 unknown g/dL MCHC unknown unkn own All T unknown 30.9 unknown pg MCH unknown unkn own All LYMPHOCYTES_ unknown 1.8 10 unknown LY_ unknown unknown AUTO_ 3/UL All T unknown 1.8 10 unknown LYMPH_AU unknown un known 3/UL TO_ All T unknown 4.4 unknown meq/L K unknown unkn own All T unknown 11.7 unknown g/dL HGB unknown unkn own All T unknown 38.0 unknown % HCT unknown unkn own All T unknown 107 unknown mg/dL GLU unknown unkn own All T unknown 4.4 unknown GLOB unknown unkn own All T unknown 56 unknown mL/min GFR_-_MD unknown un known RD All GFR_-_MDRD unknown 56 unknown mL/min GFR unknown unknown All T unknown 10.0 unknown GAP unknown unkn own All EOSINOPHILS_ unknown 0.1 10 unknown EO_ unknown unknown AUTO_ 3/UL All T unknown 0.1 10 unknown EOS_AUTO unknown un known 3/UL _ All T unknown 1.3 unknown mg/dL CREAT unknown unkn own All T unknown 26 unknown mmol/L CO2 unknown unkn own All T unknown 100 unknown mmol/L CL unknown unkn own All T unknown 8.8 unknown mg/dL CA unknown unkn own All T unknown 38 unknown mg/dL BUN unknown unkn own All BILIRUBIN_TO unknown 0.9 unknown mg/dL BILIT unknown unknown COLE All BASOPHILS_AU unknown 0.0 10 unknown BA_ unknown unknown TO_ 3/UL All T unknown 0.0 10 unknown BASO_AUT unknown un known 3/UL O_ All T unknown 0.8 unknown A_G_RATI unknown un known O All T unknown 14 unknown U/L AST unknown unkn own All T unknown 11 unknown U/L ALT_SGPT unknown un known _ All ALT_ALANINE_ unknown 11 unknown U/L ALT unknown unknown AMINOTRANSFER ASE All ALKALINE_PHO unknown 75 unknown U/L ALP unknown unknown SPHATASE All T unknown 75 unknown U/L ALK_PHOS unknown un known All T unknown 3.4 unknown g/dL ALB unknown unkn own All ALBUMIN_GLOB unknown 0.8 unknown AGRATIO unknow n unknown ULIN_RATIO
--- OUTSIDE RECORDS SUMMARY | 2020-11-06 16:24 | EXTERNAL MEDICAL SUMMARY RPT | Continuity of Care Document ---
:1955 Demographics Phone Unavailable Preferred Language Unknown Marital Status Unknown Sabianist Affiliation Unknown Race Unknown Ethnic Group Unknown Author Organization [facility] Address [address] [id number] Phone Care Team Providers Name Role Phone , Nora Javed, Unavailable Unavailable Results test status date ordered by attending specimen elver e platelet_count_estimat unknown [id number] unknown unknown unknown e urea_nitrogen_blood unknown [id number] unknown unknown unk nown Erythrocytes_volume_in unknown [id number] unknown unknown unknown _Blood_by_Automated_cou nt Erythrocyte_distributi unknown [id number] unknown unknown unknown on_width_Ratio_by_Autom ated_count MCV_Entitic_volume_by_ unknown 99315106 unknown unknown unknown Automated_count MCH_Entitic_mass_by_Au unknown [id number] unknown unknown unknown tomated_count Platelets_volume_in_Bl unknown 91101801 unknown unknown unknown ood_by_Automated_count Platelet_mean_volume_E unknown 29716937 unknown unknown unknown ntitic_volume_in_Blood_ by_Rees-Velasquez Hemoglobin_Mass_volume unknown 74042246 unknown unknown unknown _in_Blood leukocyte_count_blood unknown 02055167 unknown unknown u nknown erythrocyte_RBC_count unknown 74190221 unknown unknown u nknown Leukocytes_volume_in_B unknown 77182918 unknown unknown unknown lood_by_Automated_count Glomerular_Filtration_ unknown 90613748 unknown unknown unknown rate platelet_count unknown 00656763 unknown unknown unknown hemoglobin_blood unknown 01800591 unknown unknown unknow n hematocrit_blood unknown 74678827 unknown unknown unknow n potassium_blood unknown 81735175 unknown unknown unknown monocytes_absolute_man unknown 82451738 unknown unknown unknown ual lymphocytes_absolute_m unknown 00763637 unknown unknown unknown anual polymorphonuclear_neut unknown 76739012 unknown unknown unknown rophils_absolute_manual Glomerular_filtration_r unknown 08251368 unknown unknown unknown ate_1.73_sq_M.predicted _among_non-blacks_Volum e_Rate_Area_in_Serum_Pl asma_or_Blood_by_Creati nine-based_formula_MDRD _ Hematocrit_Volume_Frac unknown 25539696 unknown unknown unknown tion_of_Blood_by_Automa ted_count bilirubin_serum_total unknown 97187687 unknown unknown u nknown alanine_aminotransfera unknown 12100727 unknown unknown unknown se_SGPT_serum carbon_dioxide_serum_t unknown 47168764 unknown unknown unknown otal aspartate_aminotransfe unknown 18842675 unknown unknown unknown rase_SGOT_serum protein_total_serum unknown 75687145 unknown unknown unk nown blood_glucose unknown 98773402 unknown unknown unknown potassium_blood unknown 18551508 unknown unknown unknown mean_corpuscular_volum unknown 84392052 unknown unknown unknown e_RBC platelet_count_estimat unknown 61957081 unknown unknown unknown e Urea_nitrogen_Mass_vol unknown 46966821 unknown unknown unknown ume_in_Serum_or_Plasma globulin_serum unknown 39690959 unknown unknown unknown alkaline_phosphatase_s unknown 65650845 unknown unknown unknown criselda Sodium_Moles_volume_in unknown 86912439 unknown unknown unknown _Serum_or_Plasma Protein_Mass_volume_in unknown 93227848 unknown unknown unknown _Serum_or_Plasma anion_gap_serum unknown 92891240 unknown unknown unknown mean_platelet_volume unknown 86869446 unknown unknown un known Glucose_Mass_volume_in unknown 14220546 unknown unknown unknown _Serum_or_Plasma Globulin_Mass_volume_i unknown 34448692 unknown unknown unknown n_Serum Creatinine_Mass_volume unknown 03335506 unknown unknown unknown _in_Serum_or_Plasma Chloride_Moles_volume_ unknown 80390079 unknown unknown unknown in_Serum_or_Plasma carbon_dioxide_serum_t unknown 36341351 unknown unknown unknown otal Calcium_Moles_volume_i unknown 20064256 unknown unknown unknown n_Serum_or_Plasma albumin_serum unknown 18401128 unknown unknown unknown Bilirubin.total_Mass_v unknown 63005519 unknown unknown unknown olume_in_Serum_or_Plasm a Aspartate_aminotransfe unknown 17568815 unknown unknown unknown rase_Enzymatic_activity _volume_in_Serum_or_Pla sma Anion_gap_4_in_Serum_o unknown 51599998 unknown unknown unknown r_Plasma creatinine_serum unknown 22224012 unknown unknown unknow n Alkaline_phosphatase_E unknown 13542278 unknown unknown unknown nzymatic_activity_volum e_in_Blood Albumin_Globulin_Mass_ unknown 86152269 unknown unknown unknown Ratio_in_Serum_or_Plasm a Albumin_Mass_volume_in unknown 49159957 unknown unknown unknown _Serum_or_Plasma Alanine_aminotransfera unknown 34756541 unknown unknown unknown se_Enzymatic_activity_v olume_in_Serum_or_Plasm a mean_corpuscular_hemog unknown 86216633 unknown unknown unknown lobin_concentration_rbc sodium_serum unknown 92604360 unknown unknown unknown albumin_globulin_ratio unknown 39174264 unknown unknown unknown _serum chloride_serum unknown 38215564 unknown unknown unknown calcium_serum unknown 69520579 unknown unknown unknown total_cells_counted_bl unknown 26486754 unknown unknown unknown ood mean_corpuscular_hemog unknown 27178007 unknown unknown unknown lobin_RBC red_blood_cell_distrib unknown 20142745 unknown unknown unknown ution_width T unknown 36753619 unknown unknown unknown T unknown 66082560 unknown unknown unknown T unknown 01018932 unknown unknown unknown TOTAL_CELLS_COUNTED unknown 45426745 unknown unknown unk nown T unknown 39922862 unknown unknown unknown T unknown 97236177 unknown unknown unknown T unknown 60083840 unknown unknown unknown T unknown 44864603 unknown unknown unknown PLATELET_ESTIMATE_MANU unknown 82423154 unknown unknown unknown AL T unknown 33848391 unknown unknown unknown T unknown 97259960 unknown unknown unknown NEUTROPHILS_MANUAL_ unknown 67246548 unknown unknown unk nown T unknown 65948070 unknown unknown unknown T unknown 87286103 unknown unknown unknown T unknown 17664686 unknown unknown unknown MONOCYTES_MANUAL_ unknown 79166774 unknown unknown unkno wn T unknown 83090748 unknown unknown unknown T unknown 14167807 unknown unknown unknown T unknown 62257809 unknown unknown unknown T unknown 14781150 unknown unknown unknown LYMPHOCYTES_MANUAL_ unknown 74698111 unknown unknown unk nown T unknown 10102106 unknown unknown unknown T unknown 65819417 unknown unknown unknown T unknown 35750449 unknown unknown unknown T unknown 99467192 unknown unknown unknown T unknown 89959427 unknown unknown unknown T unknown 50627191 unknown unknown unknown GFR_-_MDRD unknown 42771751 unknown unknown unknown T unknown 58393893 unknown unknown unknown T unknown 10225542 unknown unknown unknown T unknown 57163706 unknown unknown unknown T unknown 41462048 unknown unknown unknown T unknown 69225202 unknown unknown unknown T unknown 28811495 unknown unknown unknown BILIRUBIN_TOTAL unknown 23803547 unknown unknown unknown T unknown 91668166 unknown unknown unknown T unknown 41323422 unknown unknown unknown T unknown 52504878 unknown unknown unknown ALT_ALANINE_AMINOTRANS unknown 51233681 unknown unknown unknown FERASE ALKALINE_PHOSPHATASE unknown 51479245 unknown unknown un known T unknown 34340085 unknown unknown unknown T unknown 54831108 unknown unknown unknown ALBUMIN_GLOBULIN_RATIO unknown 57406444 unknown unknown unknown urea_nitrogen_blood unknown 26976611 unknown unknown unk nown Erythrocytes_volume_in unknown 66431780 unknown unknown unknown _Blood_by_Automated_cou nt Erythrocyte_distributi unknown 96185110 unknown unknown unknown on_width_Ratio_by_Autom ated_count MCV_Entitic_volume_by_ unknown 82921003 unknown unknown unknown Automated_count MCH_Entitic_mass_by_Au unknown 81495594 unknown unknown unknown tomated_count Platelets_volume_in_Bl unknown 38464675 unknown unknown unknown ood_by_Automated_count Platelet_mean_volume_E unknown 56078187 unknown unknown unknown ntitic_volume_in_Blood_ by_Rees-Velasquez neutrophil_count_blood unknown 53114145 unknown unknown unknown monocyte_count_blood unknown 60052245 unknown unknown un known lymphocyte_count_blood unknown 47527487 unknown unknown unknown Hemoglobin_Mass_volume unknown 11044964 unknown unknown unknown _in_Blood eosinophil_count_blood unknown 95443595 unknown unknown unknown Basophils_volume_in_Bl unknown 04735926 unknown unknown unknown ood_by_Manual_count leukocyte_count_blood unknown 10337733 unknown unknown u nknown erythrocyte_RBC_count unknown 15818113 unknown unknown u nknown Leukocytes_volume_in_B unknown 61710673 unknown unknown unknown lood_by_Automated_count Glomerular_Filtration_ unknown 94064294 unknown unknown unknown rate platelet_count unknown 62510073 unknown unknown unknown hemoglobin_blood unknown 13605759 unknown unknown unknow n hematocrit_blood unknown 84061425 unknown unknown unknow n potassium_blood unknown 88048796 unknown unknown unknown Glomerular_filtration_r unknown 29519718 unknown unknown unknown ate_1.73_sq_M.predicted _among_non-blacks_Volum e_Rate_Area_in_Serum_Pl asma_or_Blood_by_Creati nine-based_formula_MDRD _ Hematocrit_Volume_Frac unknown 65173174 unknown unknown unknown tion_of_Blood_by_Automa ted_count bilirubin_serum_total unknown 44901892 unknown unknown u nknown alanine_aminotransfera unknown 90179587 unknown unknown unknown se_SGPT_serum carbon_dioxide_serum_t unknown 88135224 unknown unknown unknown otal aspartate_aminotransfe unknown 94669862 unknown unknown unknown rase_SGOT_serum protein_total_serum unknown 48219188 unknown unknown unk nown blood_glucose unknown 06746086 unknown unknown unknown potassium_blood unknown 50618501 unknown unknown unknown magnesium_serum unknown 65227308 unknown unknown unknown mean_corpuscular_volum unknown 99195213 unknown unknown unknown e_RBC Urea_nitrogen_Mass_vol unknown 63801424 unknown unknown unknown ume_in_Serum_or_Plasma globulin_serum unknown 50992215 unknown unknown unknown alkaline_phosphatase_s unknown 16841825 unknown unknown unknown criselda Sodium_Moles_volume_in unknown 18808409 unknown unknown unknown _Serum_or_Plasma Protein_Mass_volume_in unknown 22163130 unknown unknown unknown _Serum_or_Plasma eosinophil_count_blood unknown 90079818 unknown unknown unknown anion_gap_serum unknown 67222166 unknown unknown unknown mean_platelet_volume unknown 82245560 unknown unknown un known Magnesium_Moles_volume unknown 18875123 unknown unknown unknown _in_Serum_or_Plasma basophil_count_blood unknown 28633531 unknown unknown un known monocyte_count_blood unknown 69183143 unknown unknown un known lymphocyte_count_blood unknown 34933975 unknown unknown unknown neutrophil_count_blood unknown 14433464 unknown unknown unknown Glucose_Mass_volume_in unknown 44659884 unknown unknown unknown _Serum_or_Plasma Globulin_Mass_volume_i unknown 65949076 unknown unknown unknown n_Serum Creatinine_Mass_volume unknown 87806292 unknown unknown unknown _in_Serum_or_Plasma Chloride_Moles_volume_ unknown 13593679 unknown unknown unknown in_Serum_or_Plasma carbon_dioxide_serum_t unknown 93838280 unknown unknown unknown otal Calcium_Moles_volume_i unknown 59610896 unknown unknown unknown n_Serum_or_Plasma albumin_serum unknown 69832751 unknown unknown unknown Bilirubin.total_Mass_v unknown 92263758 unknown unknown unknown olume_in_Serum_or_Plasm a Aspartate_aminotransfe unknown 78628344 unknown unknown unknown rase_Enzymatic_activity _volume_in_Serum_or_Pla sma Anion_gap_4_in_Serum_o unknown 57392133 unknown unknown unknown r_Plasma creatinine_serum unknown 05059687 unknown unknown unknow n Alkaline_phosphatase_E unknown 65256667 unknown unknown unknown nzymatic_activity_volum e_in_Blood Albumin_Globulin_Mass_ unknown 14919126 unknown unknown unknown Ratio_in_Serum_or_Plasm a Albumin_Mass_volume_in unknown 77920865 unknown unknown unknown _Serum_or_Plasma Alanine_aminotransfera unknown 07744496 unknown unknown unknown se_Enzymatic_activity_v olume_in_Serum_or_Plasm a mean_corpuscular_hemog unknown 43109429 unknown unknown unknown lobin_concentration_rbc sodium_serum unknown 78301894 unknown unknown unknown albumin_globulin_ratio unknown 53400640 unknown unknown unknown _serum chloride_serum unknown 05365219 unknown unknown unknown calcium_serum unknown 05961930 unknown unknown unknown mean_corpuscular_hemog unknown 70657106 unknown unknown unknown lobin_RBC red_blood_cell_distrib unknown 43896837 unknown unknown unknown ution_width T unknown 53441678 unknown unknown unknown T unknown 24419924 unknown unknown unknown T unknown 28819111 unknown unknown unknown T unknown 42917375 unknown unknown unknown T unknown 24843936 unknown unknown unknown T unknown 71992443 unknown unknown unknown NEUTROPHILS_AUTO_ unknown 64455805 unknown unknown unkno wn T unknown 62737355 unknown unknown unknown T unknown 18450658 unknown unknown unknown T unknown 06505015 unknown unknown unknown MONOCYTES_AUTO_ unknown 15576441 unknown unknown unknown T unknown 94770699 unknown unknown unknown T unknown 62140915 unknown unknown unknown T unknown 79416696 unknown unknown unknown T unknown 33565541 unknown unknown unknown T unknown 52221164 unknown unknown unknown LYMPHOCYTES_AUTO_ unknown 69007611 unknown unknown unkno wn T unknown 59499412 unknown unknown unknown T unknown 06179294 unknown unknown unknown T unknown 90360108 unknown unknown unknown T unknown 43287865 unknown unknown unknown T unknown 83787002 unknown unknown unknown T unknown 08388971 unknown unknown unknown T unknown 66981633 unknown unknown unknown GFR_-_MDRD unknown 84649141 unknown unknown unknown T unknown 43301486 unknown unknown unknown EOSINOPHILS_AUTO_ unknown 56163167 unknown unknown unkno wn T unknown 98755366 unknown unknown unknown T unknown 95938882 unknown unknown unknown T unknown 48474424 unknown unknown unknown T unknown 41199172 unknown unknown unknown T unknown 83801318 unknown unknown unknown T unknown 52002738 unknown unknown unknown BILIRUBIN_TOTAL unknown 32591312 unknown unknown unknown BASOPHILS_AUTO_ unknown 96592494 unknown unknown unknown T unknown 08760938 unknown unknown unknown T unknown 77643920 unknown unknown unknown T unknown 25535820 unknown unknown unknown T unknown 52812334 unknown unknown unknown ALT_ALANINE_AMINOTRANS unknown 44601462 unknown unknown unknown FERASE ALKALINE_PHOSPHATASE unknown 58166296 unknown unknown un known T unknown 18746606 unknown unknown unknown T unknown 18071123 unknown unknown unknown ALBUMIN_GLOBULIN_RATIO unknown 08849292 unknown unknown unknown facility observation status value [...] ma All carbon_dioxi unknown 25 unknown mmol/L _8-9 unknow n unknown de_serum_tota l All Calcium_Mole [...] sma All Chloride_Mol unknown 100 unknown mmol/L _2074-0 unknow n unknown es_volume_in_ Serum_or_Plas ma All carbon_dioxi unknown 26 unknown mmol/L _2027- unknow n unknown de_serum_tota l All Calcium_Mole unknown 8.8 unknown mg/dL _1999-8 unknow n unknown s_volume_in_S erum_or_Plasm a All albumin_seru unknown 3.4 unknown g/dL _2 unknown unknown m All Bilirubin.to unknown 0.9 unknown mg/dL _1974- unknow n unknown tal_Mass_volu me_in_Serum_o r_Plasma All Aspartate_am unknown 14 unknown U/L _1920-8 unknow n unknown inotransferas [...]
[2020-11-06 17:06] LABS: BASOPHILS % (AUTO) 0.4 %; EOSINOPHILS # (AUTO) 0.1 10^3/uL (0.0-0.7); EOSINOPHILS % (AUTO) 0.5 %; HCT - HEMATOCRIT 38.6 % (42.0-52.0); HGB - HEMOGLOBIN 11.8 g/dL (14.0-18.0); LYMPHOCYTES # (AUTO) 1.8 10^3/uL (1.5-3.5); LYMPHOCYTES % (AUTO) 17.5 %; MEAN CORPUSCULAR HEMOGLOBIN 30.6 pg (27.0-31.0); MEAN CORPUSCULAR HGB CONC 30.6 g/dL (32.0-36.0); MEAN CORPUSCULAR VOLUME 100.3 fL (80.0-94.0); MEAN PLATELET VOLUME 9.5 fL (7.4-11.4); MONOCYTES # (AUTO) 0.7 10^3/uL (0.0-1.0); MONOCYTES % (AUTO) 7.2 %; NEUTROPHILS # (AUTO) 7.5 10^3/uL (1.5-6.6); NEUTROPHILS % (AUTO) 73.2 %; PLT - PLATELET COUNT 343 10^3/uL (130-450); RED BLOOD COUNT 3.85 10^6/uL (4.70-6.10); RED CELL DISTRIBUTION WIDTH 14.2 % (12.0-15.0); WHITE BLOOD COUNT 10.2 x10^3/uL (4.8-10.8)
[2020-11-06 17:19] LABS: ALBUMIN 2.6 g/dL (3.2-5.5); ALBUMIN/GLOBULIN RATIO 0.6 (1.0-2.2); BILIRUBIN,TOTAL 0.2 mg/dL (0.2-1.0); CALCIUM 8.7 mg/dL (8.5-10.3); CREATININE 1.2 mg/dL (0.6-1.2); POTASSIUM 4.6 mmol/L (3.5-5.0); TOTAL PROTEIN 6.8 g/dL (6.7-8.2)
[2020-11-06 18:07] LABS: BILIRUBIN,URINE NEGATIVE (NEGATIVE); GLUCOSE, URINE (UA) NEGATIVE (NEGATIVE); KETONES,URINE (UA) NEGATIVE (NEGATIVE); LEUKOCYTE ESTERASE, URINE NEGATIVE (NEGATIVE); NITRITE,URINE NEGATIVE (NEGATIVE); OCCULT BLOOD,URINE TRACE-LYSE (NEGATIVE); PROTEIN,URINE 30 mg/dL (NEGATIVE); UROBILINOGEN,URINE 0.2 (NORMAL) E.U./dL (NORMAL)
[2020-11-06 18:12] LABS: CLARITY,URINE HAZY (CLEAR)
[2020-11-06 18:20] LABS: BACTERIA,URINE None Seen /HPF (None Seen); MUCUS,URINE Few Strands; RBC,URINE 0-5 /HPF (0-5); SQUAMOUS EPITHELIAL CELL,UR RARE Squamous (<= Few); WBC,URINE 0-3 /HPF (0-3)
[2020-11-06 18:21] LABS: CASTS, URINE 6-10 Hyaline Casts /LPF
[2020-11-06] MEDS ORDERED: FUROSEMIDE 40 MG/4 ML VIAL IVP STA (18:32)
[2020-11-06 18:49] LABS: INR 1.4 (0.8-1.2); PT - PROTHROMBIN TIME 14.8 secs (9.9-12.6)
--- NOTE | 2020-11-06 18:49 | ED Physician Documentation ---
History of Present Illness - Stated complaint Stated Complaint: HANDS/LEGS SWELLING - Chief complaint Chief Complaint: Ext Problem - Additonal information Additional information: 64-year-old male presents to the emergency department for evaluation of worsening swelling in bilateral upper arms and lower legs. This gentleman was recently admitted to this hospital with a COPD exacerbation as well as multiple left-sided rib fractures after a fall at home nearly 2 weeks ago. He was hospitalized for multiple days. During the time in the hospital he did develop a left-sided pneumonia and is currently completing a course of Levaquin. He re ports that he began developing swelling while in the hospital but it is worsened since being discharged. He reports that his pain is fairly well controlled with the hydrocodone at home. He denies changes in his urinary habits. He reports not drinking at all since being discharged from the hospital. Review of Systems Constitutional: denies: Fever, Chills Eyes: reports: Reviewed and negative Ears: reports: Reviewed and negative Nose: reports: Reviewed and negative Throat: reports: Reviewed and negative Cardiac: reports: Chest pain / pressure (at site of rib fractures) Respiratory: reports: Reviewed and negative GI: reports: Abdominal Swelling. denies: Abdominal Pain, Nausea, Vomiting, Constipation, Hematemesis, Bloody / black stool : denies: Dysuria, Frequency, Hesitancy Skin: reports: Lesions (hemosiderin staining BLE). denies: Rash Musculoskeletal: reports: Extremity swelling (all 4 extremities 2+ pitting edema). denies: Neck pain Neurologic: denies: Generalized weakness, Focal weakness, Numbness, Syncope, Seizure, Headache, Head injury PD PAST MEDICAL HISTORY - Past Medical History Past Medical History: Yes Cardiovascular: Hypertension, High cholesterol, Other Respiratory: COPD, Shortness of breath Neuro: Other Endocrine/Autoimmune: Other GI: Other : Other HEENT: None Psych: None Musculoskeletal: Other Derm: Other - Past Surgical History Past Surgical History: Yes General: Colonoscopy, Other Cardiovascular: Other - Present Medications Home Medications: Ambulatory Orders Medication Instructions Recorded Confirmed Levofloxacin [Levaquin] 750 mg PO DAILY #10 tablet 11/02/20 11/06/20 Pregabalin [Lyrica] 75 mg PO BID #60 tab 11/02/20 11/06/20 Propranolol [Inderal] 10 mg PO BID #60 tablet 11/02/20 11/06/20 lisinopriL [Zestril] 40 mg PO DAILY tablet 11/02/20 11/06/20 - Allergies Allergies/Adverse Reactions: Allergies Allergy/AdvReac Type Severity Reaction Status Date / Time No Known Drug Allergies Allergy Verified 11/06/20 16:09 - Social History Does the pt smoke?: Yes Smoking Status: Current every day smoker Does the pt drink ETOH?: No Does the pt have substance abuse?: No - Immunizations Immunizations are current?: No Immunizations: TDAP >10years/unknown - POLST Patient has POLST: No POLST Status: Full Code (She is his power of airplane mechanic apprentice and they have never discussed the CODE STATUS. As such by default he is a full code) PD ED PE EXPANDED - General General: Alert, In Pain - Cardiac Cardiac: Irregularly irregular, Murmur Present, Radial strong equal, Pedal strong equal, Cap refill < 2 sec - Respiratory Respiratory: Other (diminished breath sounds flobally and decreased LLQ) - Abdomen Abdomen: Distended. No: Tender to palpation - Derm Derm: Normal color, Warm and dry, Other (hemosiderin staining BLE) - Extremities Extremities: Pedal edema bilateral, Pedal Pulses Present, Other (2+ pitting edema/anasarca bilateral lower extremities and arms.). No: Right calf TTP/cord, Left calf TTP/cord - Neuro Neuro: Alert and Oriented X 3, CNII-XII intact - GCS Eye Opening: Spontaneous Motor: Obeys Commands Verbal: Oriented Total: 15 Results - Vitals Vitals: Vital Signs - 24 hr 11/06/20 11/06/20 11/06/20 16:09 17:16 19:00 Temperature 36.5 C 36.9 C Heart Rate 80 84 87 Respiratory 16 16 18 Rate Blood Pressure 127/92 H 117/96 H 165/91 H O2 Saturation 93 95 94 11/06/20 21:00 Temperature 36.7 C Heart Rate 79 Respiratory 21 Rate Blood Pressure 125/89 H O2 Saturation 98 Oxygen O2 Source Room air - EKG (time done) 2703 Rate: Rate (enter#) (88) Rhythm: Sinus tachycardia, Other (Multiform PVC's/PAC) [place]: LAD Intervals: Normal AK, Prolonged QT QRS: Poor R wave progression Ischemia: Q waves (V2-V5) Compare to prior EKG: Changed from prior EKG Computer interpretation: Agree with computer - Labs Labs: Laboratory Tests 11/06/20 11/06/20 11/06/20 17:01 17:01 17:01 WBC 10.2 RBC 3.85 L Hgb 11.8 L Hct 38.6 L MCV 100.3 H MCH 30.6 MCHC 30.6 L RDW 14.2 Plt Count 343 MPV 9.5 Neut # (Auto) 7.5 H Lymph # (Auto) 1.8 Bland # (Auto) 0.7 Eos # (Auto) 0.1 Baso # (Auto) 0.0 Absolute Nucleated RBC 0.00 Nucleated RBC % 0.0 PT INR Sodium 145 Potassium 4.6 Chloride 105 Carbon Dioxide 31 Anion Gap 9.0 BUN 21 H Creatinine 1.2 Estimated GFR (MDRD) 61 L Glucose 111 H Calcium 8.7 Total Bilirubin 0.2 AST 76 H ALT 70 H Alkaline Phosphatase 93 Troponin I High Sens B-Natriuretic Peptide 1012 H Total Protein 6.8 Albumin 2.6 L Globulin 4.2 Albumin/Globulin Ratio 0.6 L Lipase 21 L Urine Color Urine Clarity Urine pH Ur Specific [place] Urine Protein Urine Glucose (UA) Urine Ketones Urine Occult Blood Urine Nitrite Urine Bilirubin Urine Urobilinogen Ur Leukocyte Esterase Urine RBC Urine WBC Ur Squamous Epith Cells Urine Bacteria Urine Casts Urine Mucus Ur Microscopic Review Urine Culture Comments 11/06/20 11/06/20 11/06/20 17:01 17:01 17:20 WBC RBC Hgb Hct MCV MCH MCHC RDW Plt Count MPV Neut # (Auto) Lymph # (Auto) [place] # (Auto) Eos # (Auto) Baso # (Auto) Absolute Nucleated RBC Nucleated RBC % PT 14.8 H INR 1.4 H Sodium Potassium Chloride Carbon Dioxide Anion Gap BUN Creatinine Estimated GFR (MDRD) Glucose Calcium Total Bilirubin AST ALT Alkaline Phosphatase Troponin I High Sens 48.1 H* B-Natriuretic Peptide Total Protein Albumin Globulin Albumin/Globulin Ratio Lipase Urine Color YELLOW Urine Clarity HAZY Urine pH 5.0 Ur Specific [place] >=1.030 H Urine Protein 30 H Urine Glucose (UA) NEGATIVE Urine Ketones NEGATIVE Urine Occult Blood TRACE-LYSE Urine Nitrite NEGATIVE Urine Bilirubin NEGATIVE Urine Urobilinogen 0.2 (NORMAL) Ur Leukocyte Esterase NEGATIVE Urine RBC 0-5 Urine WBC 0-3 Ur Squamous Epith Cells RARE Squamous Urine Bacteria None Seen Urine Casts 6-10 Hyaline Casts Urine Mucus Few Strands Ur Microscopic Review INDICATED Urine Culture Comments NOT INDICATED - Rads (name of study) CT angio chest Radiology: Final report received (Small left pleural effusion. Coronary artery disease. Left-sided rib fractures are present as before. No pulmonary embolus as visualized) CT abd/pelvis Radiology: Final report received (Small bowel containing umbilical hernia with evidence of incarceration. Surgical consultation is recommended. Bilateral renal scarring. Large bowel containing left inguinal hernia with no evidence of associated strangulation or obstruction. Small left pleural effusion.) CXR Radiology: Final report received (Cardiomegaly. No acute process.) PD MEDICAL DECISION MAKING - ED course Complexity details: reviewed results, re-evaluated patient, d/w [employer] operations consultant ED course: 64-year-old male who has a history of COPD and recently diagnosed with multiple left-sided rib fractures after a fall returns to the hospital with worsening swelling of his upper and lower extremities. He was recently hospitalized for pain management of these rib fractures as well as a COPD exacerbation. He is completing a course of Levaquin for left-sided pneumonia. On exam he has significant anasarca of the lower extremities. He is not hypoxic however. Chest x-ray suggested left-sided pleural effusion. Screening labs show no leukocytosis however he does have marked elevation in his liver function tests as well as an BNP of greater than 1000. I suspect that the transaminases are related to liver venous congestion. High-sensitivity troponin is 48. Patient denies chest pain and has a nonischemic EKG. This troponin leak is most likely a demand ischemia. However 2-hour troponin is pending. Given would be [facility] hospitals and ability to do echocardiogram over the weekend he will require transfer for further stabilization of his acute heart failure and management of his anasarca. We did complete a CT of his chest abdomen and pelvis. No PE was found. We do note mild left-sided pleural effusion. He also has an umbilical hernia that suggests incarceration. Dr. Quinten Issa did come to the bedside and evaluate this gentleman's incarcerated hernia however he feels it is likely a chronic finding and does not require immediate surgery. I discussed with nurse practitioner Wanda Gutierrez at [facility] who agrees to accept this patient in transfer. Appropriate COBRA paperwork completed Departure - Departure Disposition: 02 Transfer Acute Care Hosp Clinical Impression: Left inguinal hernia, History of COPD, Pleural effusion on left CHF (congestive heart failure) Qualifiers: Heart failure type: unspecified Heart failure chronicity: acute Qualified Code(s): I50.9 - Heart failure, unspecified Multiple fractures of ribs Qualifiers: Encounter type: subsequent encounter Fracture type: closed Laterality: left Fracture healing: with routine healing Qualified Code(s): S22.42XD - Multiple fractures of ribs, left side, subsequent encounter for fracture with routine healing Umbilical hernia Qualifiers: Obstruction and gangrene presence: without obstruction or gangrene Qualified Code(s): K42.9 - Umbilical hernia without obstruction or gangrene Pneumonia Qualifiers: Pneumonia type: due to unspecified organism Laterality: left Lung location: lower lobe of lung Qualified Code(s): J18.9 - Pneumonia, unspecified organism
[2020-11-06] MEDS ORDERED: IOPAMIDOL-300 100 ML VIAL ONE (18:51)
--- NOTE | 2020-11-06 19:05 | XRAY Report ---
PROCEDURE: Chest 1 View X-Ray INDICATIONS: chest pain TECHNIQUE: One view of the chest was acquired. COMPARISON: 10/31/2020 FINDINGS: Surgical changes and devices: None. Lungs and pleura: No pleural effusions or pneumothorax. Lungs are clear. Mediastinum: Mediastinal contours appear normal. Heart size is enlarged. Bones and chest wall: No suspicious bony lesions. Overlying soft tissues appear unremarkable. IMPRESSION: 1. Cardiomegaly. 2. No acute process. Reviewed by: Lauren Marroquin MD on 11/06/2020 7:03 PM PDT Approved by: Lauren Marroquin MD on 11/06/2020 7:03 PM PDT Station ID: [id number]
[2020-11-06] MEDS ORDERED: IOPAMIDOL-300 100 ML VIAL IVP ONE (20:01)
--- NOTE | 2020-11-06 20:23 | CT Report ---
PROCEDURE: ANGIO CHEST W/WO INDICATIONS: SOA; recent hospitalization; eval for PE CONTRAST: IV CONTRAST: Isovue 300 ml: 100 PO CONTRAST: *NO PO CONTRAST TECHNIQUE: After the administration of intravenous contrast, 2 mm thick sections acquired from the pulmonary api al to the posterior costophrenic angles. 3-dimensional maximum intensity projection (MIP) coronal a nd sagittal reformats were then acquired through the thorax. For radiation dose reduction, the follow ing was used: automated exposure control, adjustment of mA and/or kV according to patient size. COMPARISON: 10/29/[address] FINDINGS: Image quality: Excellent. Pulmonary arteries: Suboptimal evaluation of the subsegmental posterior branches of the bilateral lo wer lobe secondary to motion artifact and limits opacification. Pulmonary arteries are otherwise norm al in size, and demonstrate no intraluminal filling defects to suggest central pulmonary embolism. Lungs and pleura: Lungs are clear. No pneumothorax. Small left pleural effusion. Mild bibasilar ate lectasis. Central and peripheral airways are patent. Mediastinum: Heart size is normal, without pericardial effusion. Mild atherosclerotic calcification of the coronary vasculature. No mediastinal or hilar adenopathy. Thoracic aorta is normal in calibe r and enhancement. Esophagus is normal in caliber, without hiatal hernia. Bones and chest wall: Left-sided rib fractures are present, as before. No suspicious bony lesions. Ribs and thoracic spine appear intact throughout. The thyroid is normal. No axillary or supraclavic ular adenopathy. Abdomen: Visualized upper abdominal solid organs appear normal in the early arterial phase of enhanc ement. IMPRESSION: 1. Partially limited evaluation for pulmonary embolus as described above. No pulmonary embolus as vis ualized. 2. Small left pleural effusion. 3. Coronary artery disease. 4. Left-sided rib fractures are present, as before. Reviewed by: Lauren Marroquin MD on 11/06/2020 8:21 PM PDT Approved by: Lauren Marroquin MD on 11/06/2020 8:21 PM PDT Station ID: [id number]
--- NOTE | 2020-11-06 20:26 | CT Report ---
PROCEDURE: Abdomen/Pelvis W INDICATIONS: body swelling; recent rib fx. elevated LFT CONTRAST: IV CONTRAST: Isovue 300 ml: 100 PO CONTRAST: *NO PO CONTRAST TECHNIQUE: After the administration of IV contrast, 5 mm thick sections acquired from the diaphragms to the symp hysis. 5 mm thick coronal and sagittal reformats were acquired. For radiation dose reduction, the f ollowing was used: automated exposure control, adjustment of mA and/or kV according to patient size. COMPARISON: None. FINDINGS: Image quality: Excellent. ABDOMEN: Lung bases: Small left pleural effusion Lung bases are otherwise clear. Heart size is normal. Solid organs: Liver and spleen are normal in size and enhancement. Gallbladder is partially contrac becky Biliary system is non dilated. Pancreas enhances normally. No adrenal nodules. Bilateral carly l scarring is present. Kidneys otherwise demonstrate normal size and enhancement, without hydronephro sis. Peritoneum and bowel: Bowel loops demonstrate normal wall thickness and caliber. No free fluid or a ir. Nodes and vessels: No retroperitoneal or mesenteric adenopathy by size criteria. Aorta and inferior vena cava are normal in size. Miscellaneous: There is an umbilical hernia containing a loop of small bowel, measuring roughly 30 mm diameter, which demonstrates mild fat stranding within the hernia. There is mild dilatation of the s mall bowel loop proximal to the hernia. PELVIS: Genitourinary: Bladder wall thickness is normal. Miscellaneous: Sigmoid colon containing left inguinal hernia measuring 60 mm transverse. Fat-containi ng right inguinal hernia measuring 40 mm transverse with a small amount of fluid. Bones: No suspicious bony lesions. No vertebral body compression fractures. IMPRESSION: 1. Small bowel containing umbilical hernia with evidence of incarceration. Surgical consultation is r ecommended. 2. Bilateral renal scarring. 3. Large bowel containing left inguinal hernia with no evidence of associated strangulation nor obstr uction. 4. Small left pleural effusion. Reviewed by: Lauren Marroquin MD on 11/06/2020 8:25 PM PDT Approved by: Lauren Marroquin MD on 11/06/2020 8:25 PM PDT Station ID: [id number]
--- NOTE | 2020-11-06 20:54 | CONSULTATION NOTE ---
Referring Provider Consult Date: 11/06/20 History of Present Illness - History Obtained From History obtained from: pt Exam Limitations: none - History of Present Illness HPI Comment/Other: 64 year old seen in the ED for body swelling. He states he had an umbilical hernia repair 6 to 7 years ago. He is unaware there is a recurrent hernia. This is seen on ct scan. He has distant history of right inguinal hernia repair. He is aware of a left inguinal hernia. He denies any significant problems with this hernia. He knows to push it back in if it causes him discomfort. He denies any intestinal problems, difficulty eating, constipation type symptoms. History - Past Medical History Cardiovascular: reports: Hypertension, High cholesterol, Other Respiratory: reports: COPD, Shortness of breath Neuro: reports: Other Endocrine/Autoimmune: reports: Other GI: reports: Other : reports: Other HEENT: reports: None Psych: reports: None Musculoskeletal: reports: Other Derm: reports: Other MRSA Hx?: No - Past Surgical History General: reports: Colonoscopy, Other Cardiovascular: reports: Other - Family & Social History Family History Comment/Other: Father: age 56, drowned. Mother: COPD, age 72. 5 brothers: Hodgkin's disease, prostate cancer in 2 of them, the rest healthy. 2 sisters, one has HTN. No children Living Situation: Alone Social History Notes: He lives in 1/5 wheel that his sister is given him. She also subsidized him financially. He is never been never had children. 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 Most recent job was at the [email or web address] in [place]. He has smoked since being a teenager. Was up to 2 packs/day. Has recently cut back to half pack per day for the last year or so. Sister acknowledges his alcohol abuse but cannot quantify how much he drinks. He can either. She knows that it has to be beer because he cannot afford much more than that. He and she deny recreational substance abuse. - POLST Patient has POLST: No POLST Status: Full Code (She is his power of divorce attorney and they have never discussed the CODE STATUS. As such by default he is a full code) Meds/Allgy - Home Medications Home Medications: Ambulatory Orders Medication Instructions Recorded Confirmed Levofloxacin [Levaquin] 750 mg PO DAILY #10 tablet 11/02/20 11/06/20 Pregabalin [Lyrica] 75 mg PO BID #60 tab 11/02/20 11/06/20 Propranolol [Inderal] 10 mg PO BID #60 tablet 11/02/20 11/06/20 lisinopriL [Zestril] 40 mg PO DAILY tablet 11/02/20 11/06/20 - Allergies Allergies/Adverse Reactions: Allergies Allergy/AdvReac Type Severity Reaction Status Date / Time No Known Drug Allergies Allergy Verified 11/06/20 16:09 Exam - Vital Signs Reviewed Vital Signs: Yes Vital Signs: Vital Signs x48h Temp Pulse Resp BP Pulse Ox 11/06/20 19:00 36.9 C 87 18 165/91 H 94 11/06/20 17:16 84 16 117/96 H 95 11/06/20 16:09 36.5 C 80 16 127/92 H 93 - Physical Exam General Appearance: positive: No acute distress, Alert Eyes Bilateral: positive: Normal inspection Respiratory: positive: No respiratory distress Abdomen: positive: Non-tender, No distention, Other (the recurrent periumbilical hernia is very subtle on exam. certainly non tender and not incarcerated. the left inguinal hernia likewise is not incarcerated) Extremities: positive: Other (significant biltateral leg swelling present) Conclusion and Plan - Lab Results Laboratory Results 11/06/20 17:20: Urine Color YELLOW, Urine Clarity HAZY, Urine pH 5.0, Ur Specific [place] >=1.030 H, Urine Protein 30 H, Urine Glucose (UA) NEGATIVE, Urine Ketones NEGATIVE, Urine Occult Blood TRACE-LYSE, Urine Nitrite NEGATIVE, Urine Bilirubin NEGATIVE, Urine Urobilinogen 0.2 (NORMAL), Ur Leukocyte Esterase NEGATIVE, Urine RBC 0-5, Urine WBC 0-3, Ur Squamous Epith Cells RARE Squamous, Urine Bacteria None Seen, Urine Casts 6-10 Hyaline Casts, Urine Mucus Few Strands, Ur Microscopic Review INDICATED, Urine Culture Comments NOT INDICATED 11/06/20 17:01: Troponin I High Sens 48.1 H* 11/06/20 17:01: PT 14.8 H, INR 1.4 H 11/06/20 17:01: B-Natriuretic Peptide 1012 H 11/06/20 17:01: Sodium 145, Potassium 4.6, Chloride 105, Carbon Dioxide 31, Anion Gap 9.0, BUN 21 H, Creatinine 1.2, Estimated GFR (MDRD) 61 L, Glucose 111 H, Calcium 8.7, Total Bilirubin 0.2, AST 76 H, ALT 70 H, Alkaline Phosphatase 93, Total Protein 6.8, Albumin 2.6 L, Globulin 4.2, Albumin/Globulin Ratio 0.6 L, Lipase 21 L 11/06/20 17:01: WBC 10.2, RBC 3.85 L, Hgb 11.8 L, Hct 38.6 L, MCV 100.3 H, MCH 30.6, MCHC 30.6 L, RDW 14.2, Plt Count 343, MPV 9.5, Neut # (Auto) 7.5 H, Lymph # (Auto) 1.8, [place] # (Auto) 0.7, Eos # (Auto) 0.1, Baso # (Auto) 0.0, Absolute Nucleated RBC 0.00, Nucleated RBC % 0.0 - Plan Plan: He has reducible recurrent periumbilical hernia and reducible left inguinal hernia. He has no intestinal problems. His hernias currently are not of concern to him or myself. Certainly urgent surgical attention is not needed
[2020-11-06 21:18] VITALS: BP 125/89
[2020-11-06 21:52] LABS: CORONAVIRUS 229E-RESP PCR NOT DETECTED; CORONAVIRUS HKU1-RESP PCR NOT DETECTED; CORONAVIRUS NL63-RESP PCR NOT DETECTED; CORONAVIRUS OC43-RESP PCR NOT DETECTED; HUMAN METAPNEUMOVIRUS NOT DETECTED; INFLUENZA A- RESP PCR PANEL NOT DETECTED; RHINOVIRUS/ENTEROVIRUS NOT DETECTED; SARS-CoV-2 -RESP PCR PANEL NOT DETECTED
[2020-11-06 21:53] LABS: B. PARAPERTUSSIS- RESP PCR PAN NOT DETECTED; B. PERTUSSIS- RESP PCR PANEL NOT DETECTED; C. PNEUMONIAE- RESP PCR PANEL NOT DETECTED; INFLUENZA B - RESP PCR PANEL NOT DETECTED; M. PNEUMONIAE- RESP PCR PANEL NOT DETECTED; PARAINFLUENZA VIRUS 1 NOT DETECTED; PARAINFLUENZA VIRUS 2 NOT DETECTED; PARAINFLUENZA VIRUS 3 NOT DETECTED; PARAINFLUENZA VIRUS 4 NOT DETECTED; RSV- RESP PCR PANEL NOT DETECTED
== END 2020-11-06 21:56 | disposition short-term general hospital (02) ==
LOC: ED 16:05
DX: I11.0 Hypertensive heart disease with heart failure (principal); I50.9 Heart failure, unspecified; J90 Pleural effusion, not elsewhere classified; J18.9 Pneumonia, unspecified organism; S22.42XD Multiple fractures of ribs, left side, subsequent encounter for fracture with routine healing; W19.XXXD Unspecified fall, subsequent encounter; K42.9 Umbilical hernia without obstruction or gangrene; K40.91 Unilateral inguinal hernia, without obstruction or gangrene, recurrent; J44.9 Chronic obstructive pulmonary disease, unspecified; F17.200 Nicotine dependence, unspecified, uncomplicated; Z20.822 Contact with and (suspected) exposure to COVID-19
CPT/HCPCS: 36415; 71045; 71275; 74177; 80053; 81001; 83690; 83880; 84484; 85025; 85610; 87631; 93005; 96374; 99284; 99285; Q9967; 0202U; 81003; 87086

== ENCOUNTER 2020-11-06 22:01 | Outpatient (CLI) | payer MEDICAID, MEDICARE | END 2020-11-06 22:02 | disposition short-term general hospital (02) | LOC: EMS 22:01 | PROVIDERS: ATTEND Registered Nurse | DX: J44.9 Chronic obstructive pulmonary disease, unspecified (principal); S22.32XA Fracture of one rib, left side, initial encounter for closed fracture; W19.XXXA Unspecified fall, initial encounter; I50.9 Heart failure, unspecified; K42.9 Umbilical hernia without obstruction or gangrene | CPT/HCPCS: A0425; A0428 ==

== ENCOUNTER 2020-11-13 14:37 | Outpatient (CLI) | payer MEDICARE ==
--- NOTE | 2020-11-13 15:14 | XRAY Report ---
PROCEDURE: Chest 2 View X-Ray INDICATIONS: RIGHT HEART FAILURE TECHNIQUE: 2 view(s) of the chest. COMPARISON: 11/06/2020 and 10/31/2020 FINDINGS: Surgical changes and devices: None. Lungs and pleura: No pneumothorax. Small left-sided pleural fluid collection. Lungs are clear. Mediastinum: Mediastinal contours are normal. Heart is enlarged. Bones and chest wall: Multiple left-sided rib fractures stable compared to prior exams. No suspiciou s bony abnormalities. Soft tissues appear unremarkable. IMPRESSION: 1. Small left-sided pleural fluid collection could represent effusion or hemothorax. 2. Stable multiple left-sided rib fractures. 3. No pneumothorax. 4. Cardiomegaly. Reviewed by: Lulu Benito MD, PhD on 11/13/2020 3:12 PM PDT Approved by: Lulu Benito MD, PhD on 11/13/2020 3:12 PM PDT Station ID: [id number]
== END 2020-11-13 23:59 | disposition home or self-care (01) ==
LOC: DI.N 14:37
PROVIDERS: ATTEND Family Medicine
DX: J94.8 Other specified pleural conditions (principal); S22.42XD Multiple fractures of ribs, left side, subsequent encounter for fracture with routine healing; I51.7 Cardiomegaly